=== PATIENT | male | born 1960 | race Caucasian/White ===

== ENCOUNTER 2016-11-23 13:33 | Inpatient (IN) | payer MEDICARE, MEDICAID ==
[2016-11-23] MEDS ORDERED: Albuterol/Ipratropium Neb 3 ML NEB NEB ONE ×3 (13:51→14:56)
[2016-11-23] MEDS ORDERED: METHYLPREDNISOLONE 125 MG/2 ML VIAL IV ONE (13:51)
--- NOTE | 2016-11-23 13:54 | EDPRACDOC ---
- History of Present Illness HPI: HOME O2 IS SUPPOSED TO BE 2L, BUT PT HAS BEEN INCREASING IT IN ORDER TO HELP HIM BREATHE EASIER. <Lisa Nicole - Last Filed: 11/23/16 16:21> - General Information Information Source: Patient, Family, Transmission Mechanic - History of Present Illness HPI: C/o increasing SOB and productive cough (yellow green) and low grade fever up to 99 x 5 days. Denies cp, N/V/D, sore throat, body aches, change in urine or BM. Med hx = DM, COPD, upper left lobectomy, pulmonary fibrosis. Pt on home O2 at 4L 24/7. Current Symptoms: Reports: Cough, Fever, Nasal Symptoms Shortness of Breath: Moderate Cough: Reports: Productive, Green, Yellow Rhinorrhea: Reports: Clear Ear Symptoms: Reports: None Fever Severity/Quality: Reports: low grade Oral Intake: Decreased Urinary Output: Normal Relevant History of: COPD, Other (pulmonary fibrosis, upper left lobectomy) Associated Signs & Symptoms:: Reports: Cough, Fever, Nasal Symptoms <Allen Fitzgerald - Last Filed: 11/23/16 19:35> - General Information Chief Complaint: Dyspnea/Resp distress Stated Complaint: FEVER/SHOB Time Seen by Provider: 11/23/16 13:45 Home Medications: Home Medications Buprenorphine HCl/Naloxone HCl [Suboxone SL Film (8 mg/2 mg)] 1 film SL BID Chlorpheniramine/Phenylephrine [Eql Sinus-Allergy PE Tablet] 1 tab PO DIR Guaifenesin-Dextromethorphan [Mucinex Dm] 1 tab PO BID 11/23/16 Lamotrigine [Lamictal] 100 mg PO TID 11/23/16 Levothyroxine [Synthroid, Levoxyl] 25 mcg PO DAILY 11/23/16 Naproxen 500 mg PO BID 11/23/16 Pregabalin [Lyrica] 100 mg PO TID 11/23/16 Primidone [Mysoline] 250 mg PO TID 11/23/16 Sitagliptin Phos/Metformin HCl [Janumet 50-1,000 mg Tablet] 1 tab PO BID Tamsulosin HCl [Flomax] 0.4 mg PO DAILY 11/23/16 Tizanidine HCl 4 mg PO TID 11/23/16 Trazodone HCl 100 mg PO BID 11/23/16 Allergies/Adverse Reactions: Allergies Allergy/AdvReac Type Severity Reaction Status Date / Time No Known Allergies Allergy Verified 11/23/16 13:34 - Treatment Prior to ED Arrival Reported Medications/Treatment CAN SLIDER Meds/Treatments Given O2 via Cannula EMS Treatment BLS,EKG IV Yes Comment CBG 91 <Lisa Nicole - Last Filed: 11/23/16 16:21> ED Past Medical History - History Reviewed Yes Nurses notes reviewed and agree except as marked - Patient Medical History Psychological History: Reports: Depression - Social Medical History Smoking Status: Heavy tobacco smoker (5 or more cigarettes/day or daily pipe/ cigar) <Allen Fitzgerald - Last Filed: 11/23/16 19:35> EDM Review of Systems - Review of Systems ROS Negative Except as Marked: Yes All systems reviewed and were negative except as marked Nose: Congestion Respiratory: Cough, Shortness of Breath, Sputum Endocrine: Diabetes <Allen Fitzgerald - Last Filed: 11/23/16 19:35> - Physical Exam Last recorded Vital Signs: Last Vital Signs Temp 98.2 F 11/23/16 13:33 Pulse 112 11/23/16 15:49 Resp 22 11/23/16 15:49 BP 131/68 11/23/16 15:49 Pulse Ox 90 L 11/23/16 15:49 Oxygen Pulse Oxygen Saturation 90 O2 Device Nasal Cannula Oxygen Flow Rate 4 Fraction of Inspired Oxygen ( FIO2) <Lisa Nicole - Last Filed: 11/23/16 16:21> - Physical Exam Constitutional: Alert Oriented to: Time, Person, Place Last recorded Vital Signs: Last Vital Signs Temp Pulse 103 11/23/16 13:42 Resp 26 H 11/23/16 13:42 BP 121/69 11/23/16 13:42 Pulse Ox 88 L 11/23/16 13:42 Oxygen Pulse Oxygen Saturation 88 O2 Device Nasal Cannula Oxygen Flow Rate 3 Fraction of Inspired Oxygen ( FIO2) - HEENT Head: Normal Eye Exam: negative: Conjunctival Injection, Scleral Icterus Oropharynx: negative: Drooling Nose: Congestion Neck: Normal - Respiratory/Cardiovascular Respiratory: Rales, Rhonchi Cardiovascular: Normal - GI Tenderness: Non tender - Musculoskeletal Back: Normal Extremities: Normal - Integumentary Skin: Normal - Neurologic Mood Description: Normal Thought: Coherent Perception: Normal <Allen Fitzgerald - Last Filed: 11/23/16 19:35> - Results 11/23/16 14:00 11/23/16 14:00 WBC 16.9 xk/uL (3.8-10.8) H 11/23/16 14:00 RBC 3.83 xM/uL (4.70-6.10) L 11/23/16 14:00 Hgb 12.0 g/dL (14.0-18.0) L 11/23/16 14:00 Hct 37.4 % (42-52) L 11/23/16 14:00 MCV 98 fL (80-94) H 11/23/16 14:00 MCH 31.5 pg (27-32) 11/23/16 14:00 MCHC 32.2 g/dl (33-36) L 11/23/16 14:00 RDW 14.2 % (11.5-14.5) 11/23/16 14:00 Plt Count 210 xk/uL (130-400) 11/23/16 14:00 MPV 8.4 fL (7.4-10.4) 11/23/16 14:00 Neut % (Auto) Cancelled 11/23/16 14:00 Lymph % (Auto) Cancelled 11/23/16 14:00 [place] % (Auto) Cancelled 11/23/16 14:00 Eos % (Auto) Cancelled 11/23/16 14:00 Baso % (Auto) Cancelled 11/23/16 14:00 Absolute Neuts (auto) Cancelled 11/23/16 14:00 Absolute Lymphs (auto) Cancelled 11/23/16 14:00 Seg Neuts % (Manual) 82 % (45-76) H 11/23/16 14:00 Band Neutrophils % 6 % (0-5) H 11/23/16 14:00 Lymphocytes % (Manual) 10 % (17-44) L 11/23/16 14:00 Monocytes % (Manual) 2 % (0-10) 11/23/16 14:00 Absolute Neutrophils 14.87 xk/uL (1.7-8.2) H 11/23/16 14:00 Absolute Lymphocytes 1.69 xk/uL (0.65-4.75) 11/23/16 14:00 Atypical Lymphocytes Occ 11/23/16 14:00 Toxic Granulation 1+ 11/23/16 14:00 Platelet Estimate Norm (NORMAL) 11/23/16 14:00 RBC Morphology 1+ poik Norm 11/23/16 14:00 RBC Morphology 1+ poik Norm 11/23/16 14:00 Puncture Site Right radial 11/23/16 14:09 pH 7.270 pH UNITS (7.35-7.45) L 11/23/16 14:09 pCO2 39.0 mmHg (35-45) 11/23/16 14:09 pO2 88.0 mmHg (80-100) 11/23/16 14:09 HCO3 17.9 MMOL/L (22-26) L 11/23/16 14:09 Total CO2 19.1 MMOL/L (23-27) L 11/23/16 14:09 Base Excess -8.4 (+/- 2) L 11/23/16 14:09 FiO2 % 6 lpm nc 11/23/16 14:09 Specimen Drawn By Roude 11/23/16 14:09 Sodium 138 mEq/L (137-146) 11/23/16 14:00 Potassium 4.8 mEq/L (3.5-5.1) 11/23/16 14:00 Chloride 100 mEq/L (98-107) 11/23/16 14:00 Carbon Dioxide 19 mMOL/L (22-33) L 11/23/16 14:00 Anion Gap 24 mEq/L (8-16) H 11/23/16 14:00 BUN 13 MG/DL (9-20) 11/23/16 14:00 Creatinine 0.60 MG/DL (0.66-1.25) L 11/23/16 14:00 Estimated GFR (MDRD) > 60 mL/min (>=60) 11/23/16 14:00 Glucose 100 MG/DL (70-99) H 11/23/16 14:00 Calculated Osmolality 266 MOs/Kg (270-290) L 11/23/16 14:00 Lactic Acid 0.7 mEq/L (0.7-2.1) 11/23/16 14:00 Calcium 10.1 MG/DL (8.4-10.2) 11/23/16 14:00 Total Bilirubin 0.7 MG/DL (0.2-1.3) 11/23/16 14:00 AST 30 IU/L (17-59) 11/23/16 14:00 ALT 18 IU/L (21-72) L 11/23/16 14:00 Alkaline Phosphatase 95 IU/L (38-126) 11/23/16 14:00 Rxf-R-Dnfxlhiolqy Pept 307 pg/mL (0-900) 11/23/16 14:00 Total Protein 8.9 G/DL (6.3-8.2) H 11/23/16 14:00 Albumin 4.2 G/DL (3.5-5.0) 11/23/16 14:00 Urine Color Yellow 11/23/16 14:50 Urine Clarity Clear 11/23/16 14:50 Urine pH 6.0 (5.0-8.0) 11/23/16 14:50 Ur Specific [place] 1.015 (1.003-1.035) 11/23/16 14:50 Urine Protein Neg (NEG/TRACE) 11/23/16 14:50 Urine Glucose (UA) Neg (NEGATIVE) 11/23/16 14:50 Urine Ketones 2+ (NEGATIVE) H 11/23/16 14:50 Urine Occult Blood Neg (NEG/TRACE) 11/23/16 14:50 Urine Nitrite Neg (NEGATIVE) 11/23/16 14:50 Urine Bilirubin Neg (NEGATIVE) 11/23/16 14:50 Urine Urobilinogen 0.2 MG/DL (0-1) 11/23/16 14:50 Ur Leukocyte Esterase Neg (NEGATIVE) 11/23/16 14:50 Urine RBC 0-2 (0-2) 11/23/16 14:50 Urine WBC 0-2 (0-2) 11/23/16 14:50 Urine Bacteria Few (NEG/FEW) 11/23/16 14:50 Urine Mucus Occ (NEG/OCC) 11/23/16 14:50 Lab Results 11/23/16 11/23/16 11/23/16 14:50 14:09 14:00 WBC RBC Hgb Hct MCV MCH MCHC RDW Plt Count MPV Neut % (Auto) Lymph % (Auto) [place] % (Auto) Eos % (Auto) Baso % (Auto) Absolute Neuts (auto) Absolute Lymphs (auto) Seg Neuts % (Manual) Band Neutrophils % Lymphocytes % (Manual) Monocytes % (Manual) Absolute Neutrophils Absolute Lymphocytes Atypical Lymphocytes Toxic Granulation Platelet Estimate RBC Morphology Puncture Site Right radial pH 7.270 L pCO2 39.0 pO2 88.0 HCO3 17.9 L Total CO2 19.1 L Base Excess -8.4 L FiO2 % 6 lpm nc Specimen Drawn By Roude Sodium Potassium Chloride Carbon Dioxide Anion Gap BUN Creatinine Estimated GFR (MDRD) Glucose Calculated Osmolality Lactic Acid Calcium Total Bilirubin AST ALT Alkaline Phosphatase Cvb-Y-Luouubnhibm Pept 307 Total Protein Albumin Urine Color Yellow Urine Clarity Clear Urine pH 6.0 Ur Specific [place] 1.015 Urine Protein Neg Urine Glucose (UA) Neg Urine Ketones 2+ H Urine Occult Blood Neg Urine Nitrite Neg Urine Bilirubin Neg Urine Urobilinogen 0.2 Ur Leukocyte Esterase Neg Urine RBC 0-2 Urine WBC 0-2 Urine Bacteria Few Urine Mucus Occ 11/23/16 11/23/16 11/23/16 14:00 14:00 14:00 WBC 16.9 H RBC 3.83 L Hgb 12.0 L Hct 37.4 L MCV 98 H MCH 31.5 MCHC 32.2 L RDW 14.2 Plt Count 210 MPV 8.4 Neut % (Auto) Cancelled Lymph % (Auto) Cancelled [place] % (Auto) Cancelled Eos % (Auto) Cancelled Baso % (Auto) Cancelled Absolute Neuts (auto) Cancelled Absolute Lymphs (auto) Cancelled Seg Neuts % (Manual) 82 H Band Neutrophils % 6 H Lymphocytes % (Manual) 10 L Monocytes % (Manual) 2 Absolute Neutrophils 14.87 H Absolute Lymphocytes 1.69 Atypical Lymphocytes Occ Toxic Granulation 1+ Platelet Estimate Norm RBC Morphology Norm Puncture Site pH pCO2 pO2 HCO3 Total CO2 Base Excess FiO2 % Specimen Drawn By Sodium 138 Potassium 4.8 Chloride 100 Carbon Dioxide 19 L Anion Gap 24 H BUN 13 Creatinine 0.60 L Estimated GFR (MDRD) > 60 Glucose 100 H Calculated Osmolality 266 L Lactic Acid 0.7 Calcium 10.1 Total Bilirubin 0.7 AST 30 ALT 18 L Alkaline Phosphatase 95 Qop-X-Ujsznkuxmnb Pept Total Protein 8.9 H Albumin 4.2 Urine Color Urine Clarity Urine pH Ur Specific [place] Urine Protein Urine Glucose (UA) Urine Ketones Urine Occult Blood Urine Nitrite Urine Bilirubin Urine Urobilinogen Ur Leukocyte Esterase Urine RBC Urine WBC Urine Bacteria Urine Mucus - Additional Information PT AMBULATED AND O2 SATS DROPPED. PT BECAME MORE TACHYCARDIC AND LOOKED WORSE. PT PLACED ON BIPAP WHICH HELPED HIM FEEL BETTER. <Lisa Nicole - Last Filed: 11/23/16 16:21> - Results 11/23/16 14:00 11/23/16 14:00 - EKG EKG #1 EKG Time: 13:46 -: Yes EKG interpreted by me Rate: bpm: 101 Rhythm: ST ST: Nonsp - Diagnostic Imaging Chest Image interpreted by: Radiologist EXAM: PORTABLE CHEST 1 VIEW COMPARISON: None. FINDINGS: There is widespread interstitial and patchy alveolar edema bilaterally. There is cardiomegaly with pulmonary venous hypertension. No adenopathy apparent. No bone lesions. IMPRESSION: Evidence of congestive heart failure. Electronically Signed By: Ankit Douglas III, M.D. On: 11/23/2016 14:55 <Allen Fitzgerald - Last Filed: 11/23/16 19:35> - Departure Yes I personally saw and evaluated the patient. Decision to Admit Time: 16:25 Decision to admit date: 11/23/16 Decision to admit: from ED - Physician Consulted Hospitalist Provider Called: Renata Laurent <Lisa Nicole - Last Filed: 11/23/16 16:21> - Departure Disposition: Admit IP To This Hospital Education/Counseling Given To: Patient, Family Member Education/Counseling Given Regarding: Diagnosis, Treatment, Prognosis, Follow Up <Allen Fitzgerald - Last Filed: 11/23/16 19:35> - Departure Condition: Stable Final Diagnosis: Pulmonary fibrosis Congestive heart failure Qualifiers: Congestive heart failure type: unspecified congestive heart failure type Congestive heart failure chronicity: unspecified congestive heart failure chronicity Qualified Code(s): I50.9 - Heart failure, unspecified Respiratory failure Qualifiers: Chronicity: unspecified Respiratory failure complication: unspecified whether with hypoxia or hypercapnia Qualified Code(s): J96.90 - Respiratory failure, unspecified, unspecified whether with hypoxia or hypercapnia
[2016-11-23 14:13] LABS: MPV 8.4 fL (7.4-10.4)
[2016-11-23 14:14] LABS: ABG Draw Site Right Radial; ALLEN'S TEST PASS; BEb -8.4 (+/- 2); TCO2 19.1 MMOL/L (23-27)
[2016-11-23 14:23] LABS: BLOOD UREA NITROGEN 13 MG/DL (9-20); CALCIUM 10.1 MG/DL (8.4-10.2); CALCULATED OSMOLALITY 266 MOs/Kg (270-290); CHLORIDE 100 mEq/L (98-107); GLUCOSE 100 MG/DL (70-99); SODIUM LEVEL 138 mEq/L (137-146); TOTAL PROTEIN 8.9 G/DL (6.3-8.2)
[2016-11-23 14:56] LABS: SEG NEUTROPHIL 82 % (45-76)
--- NOTE | 2016-11-23 14:58 | DIRPT ---
CLINICAL DATA: Shortness of breath and chest pain EXAM: PORTABLE CHEST 1 VIEW COMPARISON: None. FINDINGS: There is widespread interstitial and patchy alveolar edema bilaterally. There is cardiomegaly with pulmonary venous hypertension. No adenopathy apparent. No bone lesions. IMPRESSION: Evidence of congestive heart failure. Electronically Signed By: Ankit Douglas III, M.D. On: 11/23/2016 14:55
[2016-11-23 15:10] LABS: RBC/URINE 0-2 (0-2); WBC/URINE 0-2 (0-2)
[2016-11-23 15:11] LABS: LEUKOCYTES/URINE NEG (NEGATIVE); NITRITE/URINE NEG (NEGATIVE); URINE OCCULT BLOOD NEG (NEG/TRACE)
[2016-11-23] MEDS ORDERED: FUROSEMIDE 20 MG TAB PO ONE (15:40)
[2016-11-23] MEDS ORDERED: ACETAMINOPHEN 325 MG/TAB TABLET PO ONE (15:58)
[2016-11-23] MEDS ORDERED: FUROSEMIDE 40 MG/4 ML VIAL IV ONE (16:00)
[2016-11-23 16:18] LABS: ALLEN'S TEST PASS; BEb -11.4 (+/- 2); TCO2 16.8 MMOL/L (23-27)
[2016-11-23 16:19] LABS: ABG Draw Site Right Radial
[2016-11-23] MEDS ORDERED: LORAZEPAM 2 MG/ML VIAL IV ONE (16:28)
[2016-11-23] MEDS ORDERED: NITROGLYCERINE 2 % OINTMENT PACK TOP ONE (16:28)
[2016-11-23] MEDS ORDERED: Docusate Sodium 100 MG CAP PO PRN (18:05)
[2016-11-23] MEDS ORDERED: BENZONATATE 100 MG PERLES PO PRN (18:05)
[2016-11-23] MEDS ORDERED: DEXTROSE 25 GM/50 ML PFS IV PRN (18:05)
[2016-11-23] MEDS ORDERED: Albuterol/Ipratropium Neb 3 ML NEB NEB PRN (18:05)
[2016-11-23] MEDS ORDERED: GLUCAGON 1 MG VIAL SQ PRN (18:05)
[2016-11-23] MEDS ORDERED: GUAIFENESIN 200 MG/10 ML UDC PO PRN (18:05)
[2016-11-23] MEDS ORDERED: ACETAMINOPHEN 325 MG/TAB TABLET PO PRN (18:05)
[2016-11-23] MEDS ORDERED: GLUCOSE (ORAL GEL) 15 GM TUBE PO PRN (18:05)
[2016-11-23] MEDS ORDERED: ONDANSETRON HCL 4 MG/2 ML VIAL IV PRN (18:05)
[2016-11-23] MEDS ORDERED: MAGNESIUM HYDROXIDE 30 ML BOTTLE PO PRN (18:05)
--- NOTE | 2016-11-23 18:14 | HISTPHYS ---
- Chief Complaint Shortness of breath - History of Present Illness Mr. rosa it is a 56-year-old white male with history of end-stage COPD and pulmonary fibrosis on chronic oxygen at home who presents to the emergency room with 5 days of increasing shortness of breath, congestion and general weakness. He has been using his breathing treatments regularly and has been increasing his oxygen at home. Despite this he has had very little relief. Family states that he could barely walk more than 10 feet without giving out. This prompted them to encourage him to come to the emergency room. In the ER he was severely short of breath. He was given nebulizer treatments, Lasix, IV steroids. He apparently tried to get out of bed and walk and nearly collapsed, becoming severely short of breath. He has had to be placed on BiPAP. He is moderately acidotic and hypoxic. He has severe diffuse rales and rhonchi on exam. He will be admitted to the intensive care unit for further evaluation and management. - Medical History Cardiac History: Reports: Hypertension Respiratory History: Reports: COPD, Bronchitis, Cough, Chronic Bronchitis GI/ History: Reports: No Significant History Musculoskeletal History: Reports: No Significant History Systemic History: Reports: No Significant History Neurological History: Reports: No Significant History Psychological History: Reports: Depression - Medictions/Allergies Allergies No Known Allergies Allergy (Verified 11/23/16 13:34) Current Medication List: Reviewed Home Medications Buprenorphine HCl/Naloxone HCl [Suboxone SL Film (8 mg/2 mg)] 1 film SL BID Chlorpheniramine/Phenylephrine [Eql Sinus-Allergy PE Tablet] 1 tab PO DIR Guaifenesin-Dextromethorphan [Mucinex Dm] 1 tab PO BID 11/23/16 Lamotrigine [Lamictal] 100 mg PO TID 11/23/16 Levothyroxine [Synthroid, Levoxyl] 25 mcg PO DAILY 11/23/16 Naproxen 500 mg PO BID 11/23/16 Pregabalin [Lyrica] 100 mg PO TID 11/23/16 Primidone [Mysoline] 250 mg PO TID 11/23/16 Sitagliptin Phos/Metformin HCl [Janumet 50-1,000 mg Tablet] 1 tab PO BID Tamsulosin HCl [Flomax] 0.4 mg PO DAILY 11/23/16 Tizanidine HCl 4 mg PO TID 11/23/16 Trazodone HCl 100 mg PO BID 11/23/16 - Family History Reports: Hypertension, Cardiac Disorders - Social History Lives: Alone Smoking Status: Heavy tobacco smoker (5 or more cigarettes/day or daily pipe/ cigar) Social History: Reports: Alcohol Use - Review of Systems Yes Review of systems cannot be obtained due to the patient's medical condition (Due to severe respiratory distress and BiPAP use) - Physical Exam Constitutional: Alert, Distress. negative: Well appearing (Acutely ill- appearing) Oriented to: Time, Person, Place Exam: Last Vital Signs Temp 98.2 F 11/23/16 13:33 Pulse 106 11/23/16 17:09 Resp 20 11/23/16 17:09 BP 115/80 11/23/16 17:09 Pulse Ox 94 11/23/16 17:09 Intake & Output 11/23/16 11/23/16 11/23/16 07:59 15:59 23:59 Patient's weight 98.883 kg - HEENT Head: Normal Eye: Normal. negative: Conjunctival Injection, Scleral Icterus Oropharynx: Normal. negative: Drooling Nose: Congestion - Respiratory/Cardiovascular Respiratory: Rales, Rhonchi, Tachypnea, Wheezes Cardiovascular: Tachycardia - GI Auscultation: Normal Palpation: Normal Tenderness: Non tender - Musculoskeletal Back: Normal Extremities: Normal - Integumentary Skin: Normal, Warm, Dry Lymphatics: Normal. negative: Adenopathy - Neurologic Memory Impaired: Normal (Appears normal. Difficult to interact due to respiratory distress and BiPAP use) Motor Function: Normal Cranial Nerve: Normal Cerebellar: Normal Mood Description: Normal Thought: Coherent Perception: Normal - Focused CV Perfusion Exam Vital Signs: Last Vital Signs Temp 98.2 F 11/23/16 13:33 Pulse 106 11/23/16 17:09 Resp 20 11/23/16 17:09 BP 115/80 11/23/16 17:09 Pulse Ox 94 11/23/16 17:09 - Lab Results Laboratory Results - last 24 hr 11/23/16 11/23/16 11/23/16 14:00 14:00 14:00 WBC 16.9 H RBC 3.83 L Hgb 12.0 L Hct 37.4 L MCV 98 H MCH 31.5 MCHC 32.2 L RDW 14.2 Plt Count 210 MPV 8.4 Neut % (Auto) Cancelled Lymph % (Auto) Cancelled [place] % (Auto) Cancelled Eos % (Auto) Cancelled Baso % (Auto) Cancelled Absolute Neuts (auto) Cancelled Absolute Lymphs (auto) Cancelled Seg Neuts % (Manual) 82 H Band Neutrophils % 6 H Lymphocytes % (Manual) 10 L Monocytes % (Manual) 2 Absolute Neutrophils 14.87 H Absolute Lymphocytes 1.69 Atypical Lymphocytes Occ Toxic Granulation 1+ Platelet Estimate Norm RBC Morphology Norm Puncture Site pH pCO2 pO2 HCO3 Total CO2 Base Excess FiO2 % Specimen Drawn By Sodium 138 Potassium 4.8 Chloride 100 Carbon Dioxide 19 L Anion Gap 24 H BUN 13 Creatinine 0.60 L Estimated GFR (MDRD) > 60 Glucose 100 H Calculated Osmolality 266 L Lactic Acid 0.7 Calcium 10.1 Total Bilirubin 0.7 AST 30 ALT 18 L Alkaline Phosphatase 95 Cut-G-Leensudkrpx Pept Total Protein 8.9 H Albumin 4.2 Urine Color Urine Clarity Urine pH Ur Specific [place] Urine Protein Urine Glucose (UA) Urine Ketones Urine Occult Blood Urine Nitrite Urine Bilirubin Urine Urobilinogen Ur Leukocyte Esterase Urine RBC Urine WBC Urine Bacteria Urine Mucus 11/23/16 11/23/16 11/23/16 14:00 14:09 14:50 WBC RBC Hgb Hct MCV MCH MCHC RDW Plt Count MPV Neut % (Auto) Lymph % (Auto) [place] % (Auto) Eos % (Auto) Baso % (Auto) Absolute Neuts (auto) Absolute Lymphs (auto) Seg Neuts % (Manual) Band Neutrophils % Lymphocytes % (Manual) Monocytes % (Manual) Absolute Neutrophils Absolute Lymphocytes Atypical Lymphocytes Toxic Granulation Platelet Estimate RBC Morphology Puncture Site Right radial pH 7.270 L pCO2 39.0 pO2 88.0 HCO3 17.9 L Total CO2 19.1 L Base Excess -8.4 L FiO2 % 6 lpm nc Specimen Drawn By Roude Sodium Potassium Chloride Carbon Dioxide Anion Gap BUN Creatinine Estimated GFR (MDRD) Glucose Calculated Osmolality Lactic Acid Calcium Total Bilirubin AST ALT Alkaline Phosphatase Gsv-X-Hpdqxnckvgw Pept 307 Total Protein Albumin Urine Color Yellow Urine Clarity Clear Urine pH 6.0 Ur Specific [place] 1.015 Urine Protein Neg Urine Glucose (UA) Neg Urine Ketones 2+ H Urine Occult Blood Neg Urine Nitrite Neg Urine Bilirubin Neg Urine Urobilinogen 0.2 Ur Leukocyte Esterase Neg Urine RBC 0-2 Urine WBC 0-2 Urine Bacteria Few Urine Mucus Occ 11/23/16 16:14 WBC RBC Hgb Hct MCV MCH MCHC RDW Plt Count MPV Neut % (Auto) Lymph % (Auto) [place] % (Auto) Eos % (Auto) Baso % (Auto) Absolute Neuts (auto) Absolute Lymphs (auto) Seg Neuts % (Manual) Band Neutrophils % Lymphocytes % (Manual) Monocytes % (Manual) Absolute Neutrophils Absolute Lymphocytes Atypical Lymphocytes Toxic Granulation Platelet Estimate RBC Morphology Puncture Site Right radial pH 7.220 L* pCO2 38.0 pO2 102.0 H HCO3 15.6 L Total CO2 16.8 L Base Excess -11.4 L FiO2 % 4lpm nc Specimen Drawn By Piksa Sodium Potassium Chloride Carbon Dioxide Anion Gap BUN Creatinine Estimated GFR (MDRD) Glucose Calculated Osmolality Lactic Acid Calcium Total Bilirubin AST ALT Alkaline Phosphatase Wbg-P-Pnyjohpxpbp Pept Total Protein Albumin Urine Color Urine Clarity Urine pH Ur Specific [place] Urine Protein Urine Glucose (UA) Urine Ketones Urine Occult Blood Urine Nitrite Urine Bilirubin Urine Urobilinogen Ur Leukocyte Esterase Urine RBC Urine WBC Urine Bacteria Urine Mucus - Assessment (1) Acute respiratory failure J96.00 - ACUTE RESPIRATORY FAILURE, UNSP W HYPOXIA OR HYPERCAPNIA Acute Present on Admission: Yes Qualifiers: Respiratory failure complication: hypoxia Qualified Code(s): J96.01 - Acute respiratory failure with hypoxia Significant distress and terrible lung exam. Currently on BiPAP. Admit to the ICU. IV steroids, IV antibiotics, nebulizer treatments and BiPAP support. The congestion and x-ray appear like heart failure however his BNP is completely normal at 307. (2) Acute bronchopneumonia J18.0 - BRONCHOPNEUMONIA, UNSPECIFIED ORGANISM Acute Present on Admission: Yes IV antibiotics and pulmonary toilet. (3) Diabetes mellitus E11.9 - TYPE 2 DIABETES MELLITUS WITHOUT COMPLICATIONS Acute Present on Admission: Yes Qualifiers: Diabetes mellitus type: type 2 Diabetes mellitus complication status: without complication Diabetes mellitus complication detail: D Diabetic retinopathy severity: D Proliferative retinopathy type: P Diabetes mellitus macular edema: D Diabetes mellitus terminal manager insulin use: without [place] [facility] use Laterality: L Chronic kidney disease stage: C Qualified Code(s): E11.9 - Type 2 diabetes mellitus without complications Accu-Cheks and sliding scale insulin (4) Resting tremor R25.9 - UNSPECIFIED ABNORMAL INVOLUNTARY MOVEMENTS Acute Present on Admission: Yes Continue current medications (5) Congestive heart failure I50.9 - HEART FAILURE, UNSPECIFIED Suspected Present on Admission: Clinically Unable to Determine Qualifiers: Congestive heart failure type: unspecified congestive heart failure type Congestive heart failure chronicity: acute Qualified Code(s): I50.9 - Heart failure, unspecified Clinically he appears congested like heart failure however his BNP is normal at 307 which effectively rules out CHF. Will check 2D echo (6) Pulmonary fibrosis J84.10 - PULMONARY FIBROSIS, UNSPECIFIED Acute Present on Admission: Yes Continue IV steroids nebulizer treatments. Encourage smoking cessation Case Care Discussed with: Patient, Family (Discuss with family at length) Total Time: 1 hour 30 minutes Critical Care: Yes
[2016-11-23 18:31] LABS: FREE T3 3.31 pg/mL (2.77-5.27); FREE T4 1.62 ng/dL (0.78-2.19)
[2016-11-23 18:45] LABS: hTSH 1.33 uIU/mL (0.5-4.67)
[2016-11-23] MEDS: Albuterol/Ipratropium Neb 3 ML NEB NEB SCH (19:55)
[2016-11-23] MEDS ORDERED: LORAZEPAM 2 MG/ML VIAL ONE (20:01)
[2016-11-23] MEDS ORDERED: NS 500 ML IV ONE (20:04)
[2016-11-23] MEDS: NS/KCl 20 mEq 1,000 ML IV SCH (20:14)
[2016-11-23] MEDS: CEFTRIAXONE 1 GM in D5W 100 ML IV SCH (20:19)
[2016-11-23] MEDS: ENOXAPARIN 40 MG/0.4 ML PFS SQ SCH (20:20)
[2016-11-23] MEDS: NICOTINE 21 MG PATCH TOP SCH (20:20)
[2016-11-23] MEDS: METHYLPREDNISOLONE 125 MG/2 ML VIAL IV SCH (20:21)
[2016-11-23] MEDS ORDERED: NALOXONE 2 MG SL ONE (21:00)
[2016-11-23] MEDS ORDERED: BUPRENORPHINE SL ONE (21:00)
[2016-11-23] MEDS ORDERED: Non-Formulary Medication ITEM (Tizanidine Hcl [Tizanidine Hcl] 4 MG) PO SCH (21:00)
[2016-11-23] MEDS: AZITHROMYCIN 500 MG in D5W 250 ML IV SCH (21:36)
[2016-11-23] MEDS: CHLORHEXIDINE (HIBICLENS) 4 OZ BOTTLE TOP SCH (21:49)
[2016-11-23] MEDS: PREGABALIN 100 MG CAP PO SCH (21:50)
[2016-11-23] MEDS: LAMOTRIGINE 100 MG TAB PO SCH (21:50)
[2016-11-23] MEDS: PRIMIDONE 250 MG TAB PO SCH (21:50)
[2016-11-23] MEDS: TIZANIDINE 2 MG TAB PO SCH (21:50)
[2016-11-23] MEDS: TRAZODONE 100 MG TAB PO SCH (21:50)
[2016-11-23] MEDS: REGULAR INSULIN 100 UNITS/ML - 3 ML VIAL SQ SCH (21:51)
[2016-11-23] MEDS: BUPRENORPHINE SL SCH (22:09)
[2016-11-23] MEDS: NALOXONE 2 MG SL SCH (22:09)
[2016-11-24] MEDS: Albuterol/Ipratropium Neb 3 ML NEB NEB SCH ×4 (01:25→21:25)
[2016-11-24] MEDS: METHYLPREDNISOLONE 125 MG/2 ML VIAL IV SCH ×4 (02:09→20:10)
[2016-11-24 05:04] LABS: ALLEN'S TEST PASS; BEb -8.3 (+/- 2); TCO2 20.3 MMOL/L (23-27)
[2016-11-24] MEDS: PRIMIDONE 250 MG TAB PO SCH ×3 (05:20→20:13)
[2016-11-24] MEDS: TIZANIDINE 2 MG TAB PO SCH ×3 (05:20→20:13)
[2016-11-24] MEDS: LAMOTRIGINE 100 MG TAB PO SCH ×3 (05:20→20:12)
[2016-11-24] MEDS: PREGABALIN 100 MG CAP PO SCH ×3 (05:20→20:13)
[2016-11-24 05:40] LABS: ABG Draw Site Right Radial
[2016-11-24] MEDS: REGULAR INSULIN 100 UNITS/ML - 3 ML VIAL SQ SCH ×4 (06:02→20:19)
[2016-11-24] MEDS: NS/KCl 20 mEq 1,000 ML IV SCH (06:32)
[2016-11-24 07:06] LABS: BLOOD UREA NITROGEN 16 MG/DL (9-20); CALCIUM 9.2 MG/DL (8.4-10.2); CALCULATED OSMOLALITY 272 MOs/Kg (270-290); CHLORIDE 100 mEq/L (98-107); GLUCOSE 145 MG/DL (70-99); SODIUM LEVEL 139 mEq/L (137-146)
[2016-11-24 07:14] LABS: MPV 8.6 fL (7.4-10.4)
[2016-11-24 07:36] LABS: SEG NEUTROPHIL 67 % (45-76); TOTAL CELL COUNT 100
--- NOTE | 2016-11-24 07:49 | GENMEDPROG ---
Chief Complaint: Feels about the same. More fatigued. Still acidotic but oxygenation better. Still severely congested Notes Reviewed: Yes Events from last night noted and discussed with Clinical Staff Current Medication List: Reviewed Currently: Reports: Cough, Wheezing, CHAVEZ, SOB. Denies: Sputum, Nausea and Vomiting, Abdominal Pain, Chest Pain DVT Prophylaxis: Yes - Physical Examination Vital Signs and I&O: Last Vital Signs Temp 98.7 F 11/24/16 07:00 Pulse 87 11/24/16 07:00 Resp 22 11/24/16 07:00 BP 123/71 11/24/16 07:00 Pulse Ox 100 11/24/16 07:00 Oxygen Pulse Oxygen Saturation 100 O2 Device BiPAP Oxygen Flow Rate Fraction of Inspired Oxygen ( 35 FIO2) Intake & Output 11/21/16 11/22/16 11/23/16 11/24/16 23:59 23:59 23:59 23:59 Intake Total 387 1148 Output Total 975 550 Balance -588 598 Patient's weight 91.716 kg General: Alert, Oriented x3, Cooperative, Moderate distress. negative: Well appearing (Acutely ill-appearing) HEENT: Normal, PERRLA, EOMI, Anicteric Sclera Neck: Non-tender, Full range of motion, Normal Trachea alignment, Normal inspection. negative: JVD Lymphatics: Normal. negative: Adenopathy, Inguinal Erythema Respiratory: Rales, Rhonchi, Tachypnea, Wheezes Cardiovascular: Regular rate and rhythm, No Gallops,Rubs/Murmurs GI: Normal bowel sounds, Soft, No hepatospenomegaly Extremities/Musculoskeletal: Normal pulses. negative: Tenderness, Swelling, Edema Skin: Warm,Dry and Intact, No rashes, No breakdown, No significant lesion Neurological: Normal speech, Strength at 5/5 X4 ext, Normal tone Psych/Mental Status: Appropriate, Normal Affect, Cooperative Lab/DI/Studies Reviewed: Laboratory Results - last 24 hr 11/23/16 11/23/16 11/23/16 17:47 17:47 21:48 WBC RBC Hgb Hct MCV MCH MCHC RDW Plt Count MPV Neut % (Auto) Lymph % (Auto) [place] % (Auto) Eos % (Auto) Baso % (Auto) Absolute Neuts (auto) Absolute Lymphs (auto) Seg Neuts % (Manual) Band Neutrophils % Lymphocytes % (Manual) Monocytes % (Manual) Myelocytes % Absolute Neutrophils Absolute Lymphocytes Platelet Estimate RBC Morphology Puncture Site pH pCO2 pO2 HCO3 Total CO2 Base Excess FiO2 % Tidal Volume Mode BiPAP Specimen Drawn By Sodium Potassium Chloride Carbon Dioxide Anion Gap BUN Creatinine Estimated GFR (MDRD) Glucose POC Capillary Glucose 182 H Calculated Osmolality Calcium Troponin I < 0.01 TSH 1.33 Free T4 1.62 Free T3 3.31 11/24/16 11/24/16 11/24/16 04:55 06:01 06:05 WBC RBC Hgb Hct MCV MCH MCHC RDW Plt Count MPV Neut % (Auto) Lymph % (Auto) [place] % (Auto) Eos % (Auto) Baso % (Auto) Absolute Neuts (auto) Absolute Lymphs (auto) Seg Neuts % (Manual) Band Neutrophils % Lymphocytes % (Manual) Monocytes % (Manual) Myelocytes % Absolute Neutrophils Absolute Lymphocytes Platelet Estimate RBC Morphology Puncture Site Right radial pH 7.240 L* pCO2 44.0 pO2 118.0 H HCO3 18.9 L Total CO2 20.3 L Base Excess -8.3 L FiO2 % 35 Tidal Volume Mode BiPAP 08/10 Specimen Drawn By [facility] Sodium 139 Potassium 5.8 H Chloride 100 Carbon Dioxide 20 L Anion Gap 25 H BUN 16 Creatinine 0.60 L Estimated GFR (MDRD) > 60 Glucose 145 H POC Capillary Glucose 144 H Calculated Osmolality 272 Calcium 9.2 Troponin I TSH Free T4 Free T3 11/24/16 11/24/16 11/24/16 06:05 11:17 17:01 WBC 11.8 H RBC 3.81 L Hgb 12.0 L Hct 37.1 L MCV 97 H MCH 31.6 MCHC 32.4 L RDW 14.2 Plt Count 209 MPV 8.6 Neut % (Auto) Cancelled Lymph % (Auto) Cancelled [place] % (Auto) Cancelled Eos % (Auto) Cancelled Baso % (Auto) Cancelled Absolute Neuts (auto) Cancelled Absolute Lymphs (auto) Cancelled Seg Neuts % (Manual) 67 Band Neutrophils % 18 H Lymphocytes % (Manual) 6 L Monocytes % (Manual) 7 Myelocytes % 2 H Absolute Neutrophils 10.03 H Absolute Lymphocytes 0.71 Platelet Estimate Norm RBC Morphology Norm Puncture Site pH pCO2 pO2 HCO3 Total CO2 Base Excess FiO2 % Tidal Volume Mode BiPAP Specimen Drawn By Sodium Potassium Chloride Carbon Dioxide Anion Gap BUN Creatinine Estimated GFR (MDRD) Glucose POC Capillary Glucose 117 H 177 H Calculated Osmolality Calcium Troponin I TSH Free T4 Free T3 - Assessment (1) Acute respiratory failure Acute J96.00 - ACUTE RESPIRATORY FAILURE, UNSP W HYPOXIA OR HYPERCAPNIA Qualifiers: Respiratory failure complication: hypoxia Qualified Code(s): J96.01 - Acute respiratory failure with hypoxia Comment/Plan: More comfortable today. Still significant wheezes, rales and rhonchi on exam. Very congested. Less hypoxic but remains moderately acidotic. Continue BiPAP use. IV steroids, IV antibiotics and nebulizer treatments. 2D echo has been ordered. Have asked Dr. Luong with Pulmonary Critical Care to see in consultation. Continue ICU care (2) Acute bronchopneumonia Acute J18.0 - BRONCHOPNEUMONIA, UNSPECIFIED ORGANISM Comment/Plan: IV antibiotics and pulmonary toilet. (3) Diabetes mellitus Acute E11.9 - TYPE 2 DIABETES MELLITUS WITHOUT COMPLICATIONS Qualifiers: Diabetes mellitus type: type 2 Diabetes mellitus complication status: without complication Diabetes mellitus complication detail: D Diabetic retinopathy severity: D Proliferative retinopathy type: P Diabetes mellitus macular edema: D Diabetes mellitus alf insulin use: without alf use Laterality: L Chronic kidney disease stage: C Qualified Code(s): E11.9 - Type 2 diabetes mellitus without complications Comment/Plan: Accu-Cheks and sliding scale insulin (4) Resting tremor Acute R25.9 - UNSPECIFIED ABNORMAL INVOLUNTARY MOVEMENTS Comment/Plan: Continue current medications (5) Congestive heart failure Suspected I50.9 - HEART FAILURE, UNSPECIFIED Qualifiers: Congestive heart failure type: unspecified congestive heart failure type Congestive heart failure chronicity: acute Qualified Code(s): I50.9 - Heart failure, unspecified Comment/Plan: Clinically he appears congested like heart failure however his BNP is normal at 307 which effectively rules out CHF. Will check 2D echo (6) Pulmonary fibrosis Acute J84.10 - PULMONARY FIBROSIS, UNSPECIFIED Comment/Plan: Continue IV steroids nebulizer treatments. Encourage smoking cessation Case Care Discussed with: Patient, Consultants, Family, Nursing Staff, Physical Therapy, Resource Management, Respiratory Therapy, Encyclopedia Research Worker Total Time: 45 minutes Critical Care: Yes
[2016-11-24] MEDS ORDERED: FLU VACCINE (Afluria) 0.5 ML DOSE IM ONE (08:00)
[2016-11-24] MEDS ORDERED: PNEUMOCOCCAL 0.5 ML VIAL IM ONE (08:00)
[2016-11-24] MEDS: NS 1,000 ML IV SCH (10:07)
[2016-11-24] MEDS: LEVOTHYROXINE 25 MCG (0.025 MG) TAB PO SCH (10:09)
[2016-11-24] MEDS: TRAZODONE 100 MG TAB PO SCH ×2 (10:09→20:11)
[2016-11-24] MEDS: TAMSULOSIN HCL 0.4 MG CAP PO SCH (10:09)
[2016-11-24] MEDS: NALOXONE 2 MG SL SCH ×2 (10:25→20:13)
[2016-11-24] MEDS: BUPRENORPHINE SL SCH ×2 (10:25→20:13)
--- NOTE | 2016-11-24 15:41 | CAPUECHO ---
INDICATION: CHF HEIGHT: 182.9 cm (6 ft 0.0 in) WEIGHT: 91.6 kg (202.0 lbs) BP: 114/63 BSA: 2.331989 m MEASUREMENTS 2D RVIDd: 4.5 cm LA Diam: 4.2 cm LAESV MOD A4C: 64.8 ml LAESV MOD A2C: 74.8 ml LAESV Index (A-L): 37.16 ml/m M-MODE IVSd: 1.0 cm LVIDd: 4.9 cm LVPWd: 1.0 cm LVIDs: 3.5 cm EF(Teich): 55 % DOPPLER MV E Serge: 0.60 m/s MV A Serge: 0.38 m/s MV PHT: 44.59 ms MVA By PHT: 4.93 cm LVOT Vmax: 0.83 m/s AV Vmax: 1.25 m/s TR Vmax: 4.13 m/s TR maxP mmHg RVSP: 78.26 mmHg FINDINGS ------- Procedure:2D images, m-mode, color and spectral Doppler were obtained and reviewed. ECG rhythm:Sinus rhythm. Study quality:This was a technically adequate study. This was a technically difficult study with s uboptimal apical views. Left Ventricle:The left ventricular size is normal. Left ventricular wall thickness is normal. T here is normal global left ventricular contractility. Overall left ventricular systolic function i s normal with, an EF between 60 - 65 %. There is septal flattening in systole which is consistent with right ventricular pressure overload. The diastolic filling pattern is normal for the age of t he patient. Right Ventricle:The right ventricle is moderately enlarged. The right ventricular systolic functio n is moderately impaired. Left Atrium:The left atrium is mildly dilated. Right Atrium:The right atrium is mildly enlarged. Aortic Valve:The aortic valve is trileaflet, and appears structurally normal. No aortic stenosis or regurgitation. Mitral Valve:Normal appearing mitral valve. There is trace mitral regurgitation. Tricuspid Valve:The tricuspid valve appears structurally normal. Moderate tricuspid regurgitation present. There is moderate to severe pulmonary hypertension, the peak PA systolic pressure and pu lmonary artery flow acceleration time are more consistent with chronic PAH than acute. Pulmonic Valve:The pulmonic valve is normal. Trace/mild (physiologic) pulmonic regurgitation. Aorta:The aortic root, ascending aorta and aortic arch appear normal. IVC:The inferior vena cava was not well visualized. Pericardium:The pericardium is normal. There is no pericardial effusion. CONCLUSIONS 1. There is normal global left ventricular contractility. 2. Overall left ventricular systolic function is normal with, an EF between 60 - 65 %. 3. There is septal flattening in systole which is consistent with right ventricular pressure overloa d. 4. The right ventricle is moderately enlarged. 5. The right ventricular systolic function is moderately impaired. 6. Moderate tricuspid regurgitation present. 7. There is moderate to severe pulmonary hypertension, the peak PA systolic pressure and pulmonary artery flow acceleration time are more consistent with chronic PAH than acute. Electronically Signed By: Valentin Hernandez MD, FACC Electronically Signed On: 15:41:18
[2016-11-24] MEDS: NICOTINE 21 MG PATCH TOP SCH (17:30)
[2016-11-24] MEDS: ENOXAPARIN 40 MG/0.4 ML PFS SQ SCH (17:30)
[2016-11-24] MEDS: CEFTRIAXONE 1 GM in D5W 100 ML IV SCH (17:33)
[2016-11-24] MEDS: AZITHROMYCIN 500 MG in D5W 250 ML IV SCH (20:11)
[2016-11-24] MEDS: CHLORHEXIDINE (HIBICLENS) 4 OZ BOTTLE TOP SCH (21:12)
[2016-11-24] MEDS: METHYLPREDNISOLONE 40 MG/1 ML VIAL IV SCH (21:14)
[2016-11-24] MEDS: FUROSEMIDE 20 MG/2 ML VIAL IV SCH (23:33)
[2016-11-24] MEDS: ZOLPIDEM TARTRATE 5 MG TAB PO PRN (23:39)
--- NOTE | 2016-11-25 00:19 | HIMCONS ---
DATE OF CONSULT: REQUESTING PHYSICIAN: Jamil Brown MD REASON FOR CONSULTATION: Respiratory failure. 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 The patient has not been feeling well for 5 days prior to his coming to the hospital with worsening breathing, congestion, chest tightness, and wheezing, coughing up phlegm, and he quit smoking 1 week prior to his admission because he could not do it. He has been using nebulizers and oxygen at home and could not walk and eventually ended up in the emergency room after end of hospital considering this as a better hospital. He was given IV Lasix and steroids and has been placed on BiPAP. He has been very hypoxic. He has been somewhat better since his admission and has been off the BiPAP and on oxygen and doing fairly well. Denies any hemoptysis, hematemesis, hematochezia, nausea, vomiting, diarrhea, constipation. 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 History of right lung fibrosis. ALLERGIES: NO KNOWN DRUG ALLERGIES. MEDICATIONS: In the chart were noted. FAMILY HISTORY: Significant for hypertension and cardiac disorder. SOCIAL HISTORY: The patient had been a nicotine addict most of his adult life. Has been a heavy smoker and quit about 1 week prior to coming to the hospital. No history of drug abuse. Has been using alcohol. REVIEW OF SYSTEMS: A detailed review of systems is negative except for as mentioned in the history of present illness. PHYSICAL EXAMINATION: VITAL SIGNS: Temperature is 97.6 degrees Fahrenheit, pulse is 76, respiratory rate is 22, blood pressure 112/60, and pulse ox 95% on 3 liters nasal cannula. CHEST: Decreased bilateral air entry. No wheezing. HEART: S1, S2. Regular. No murmur. EXTREMITIES: No clubbing, cyanosis, or edema. ABDOMEN: Soft and nontender. Bowel sounds present. Hepatosplenomegaly is absent. NEURO: The patient is moving all extremities. LABORATORY DATA: White count is 11.8, hemoglobin is 12.0, hematocrit is 37.1, and platelets are 209. Blood gas showed a pH of 7.24, pCO2 of 44, PO2 of 118, that was on 10/5 BiPAP with 35% oxygen. Sodium 139, potassium 5.8, chloride 100, CO2 is 28, BUN 16, creatinine 0.6, glucose is 145. CPK and troponin-I within normal limits. IMAGING REPORTS: Chest x-ray was done on admission and was seen personally. The patient seems to have bilateral diffuse pulmonary edema/infiltrates. Cannot rule out pulmonary fibrosis on the right and effusion on the left side. IMPRESSION: 1. [id number] respiratory failure which could be multifactorial including chronic obstructive pulmonary disease exacerbation and congestive heart failure. 2. History of diabetes. 3. Pneumonia. 4. Multiple other medical issues. 5. Pulmonary fibrosis. PLAN: The patient has been on Rocephin and Zithromax. Has been doing fairly well while he was in ICU and is remaining on 3 L oxygen at this time. Has been using Lovenox for DVT prophylaxis and Solu-Medrol 60 mg IV q.6 hours. Blood gas is very acidotic with both respiratory and metabolic acidosis, and therefore, I would start the patient back on BiPAP while he is sleeping at night and continue him on noninvasive ventilation until we do gas in the morning. I would cut down the Solu- Medrol to 40 mg IV every 8 hours and also get a CAT scan of the chest without contrast if he can do it in the morning. Would get a blood gas in the morning as well. The patient would need long-term care and probably need some therapy for his pulmonary fibrosis as well. The patient was told in no uncertain terms that he needs to quit smoking. He agrees and understands, wants to go ahead and do it. I had a prolonged discussion with the patient's family as well. The patient remains critically ill. He is in danger of getting worse. I would keep the patient in ICU for tonight. Thank you very much for the consultation. Time spent approximately was 35 minutes. [id number]
[2016-11-25] MEDS: LORAZEPAM 2 MG/ML VIAL IV PRN ×2 (01:00→21:16)
[2016-11-25] MEDS: Albuterol/Ipratropium Neb 3 ML NEB NEB SCH ×4 (01:29→20:46)
[2016-11-25 05:41] LABS: ALLEN'S TEST PASS; BEb 1.5 (+/- 2); TCO2 29.2 MMOL/L (23-27)
[2016-11-25 05:51] LABS: ABG Draw Site Right Radial
[2016-11-25] MEDS: TIZANIDINE 2 MG TAB PO SCH ×3 (05:56→20:33)
[2016-11-25] MEDS: PRIMIDONE 250 MG TAB PO SCH ×3 (05:56→20:34)
[2016-11-25] MEDS: LAMOTRIGINE 100 MG TAB PO SCH ×3 (05:57→20:33)
[2016-11-25] MEDS: PREGABALIN 100 MG CAP PO SCH ×3 (05:57→20:33)
[2016-11-25] MEDS: FUROSEMIDE 20 MG/2 ML VIAL IV SCH ×3 (05:57→21:16)
[2016-11-25] MEDS: METHYLPREDNISOLONE 40 MG/1 ML VIAL IV SCH ×3 (05:57→21:16)
[2016-11-25 06:03] LABS: MPV 9.1 fL (7.4-10.4)
[2016-11-25 06:15] LABS: BLOOD UREA NITROGEN 19 MG/DL (9-20); CALCIUM 8.9 MG/DL (8.4-10.2); CALCULATED OSMOLALITY 264 MOs/Kg (270-290); CHLORIDE 99 mEq/L (98-107); GLUCOSE 135 MG/DL (70-99); SODIUM LEVEL 135 mEq/L (137-146)
[2016-11-25] MEDS: REGULAR INSULIN 100 UNITS/ML - 3 ML VIAL SQ SCH ×4 (07:19→20:32)
--- NOTE | 2016-11-25 07:57 | GENMEDPROG ---
Chief Complaint: More lethargic today. Says he feels a little better. Still significant congestion though slightly better Notes Reviewed: Yes Events from last night noted and discussed with Clinical Staff Current Medication List: Reviewed Currently: Reports: Cough, Wheezing, CHAVEZ, SOB. Denies: Sputum, Nausea and Vomiting, Abdominal Pain, Chest Pain DVT Prophylaxis: Yes - Physical Examination Vital Signs and I&O: Last Vital Signs Temp 97.7 F 11/25/16 03:00 Pulse 102 11/25/16 06:00 Resp 18 11/25/16 05:00 BP 113/59 L 11/25/16 06:00 Pulse Ox 94 11/25/16 06:00 Oxygen Pulse Oxygen Saturation 94 O2 Device Nasal Cannula Oxygen Flow Rate 3 Fraction of Inspired Oxygen ( 35 FIO2) Intake & Output 11/22/16 11/23/16 11/24/16 11/25/16 23:59 23:59 23:59 23:59 Intake Total 387 3181 751 Output Total 975 1650 1800 Balance -588 1531 -1049 Patient's weight 91.716 kg 90.582 kg General: Oriented x3, Cooperative, Moderate distress, Weakness, Fatigue. negative: Well appearing (Acutely ill-appearing) HEENT: Normal, PERRLA, EOMI, Anicteric Sclera Neck: Non-tender, Full range of motion, Normal Trachea alignment, Normal inspection. negative: JVD Lymphatics: Normal. negative: Adenopathy, Inguinal Erythema Respiratory: Rales, Rhonchi, Tachypnea. negative: Wheezes (No wheezes today) Cardiovascular: Regular rate and rhythm, No Gallops,Rubs/Murmurs GI: Normal bowel sounds, Soft, No hepatospenomegaly Extremities/Musculoskeletal: Normal pulses. negative: Tenderness, Swelling, Edema Skin: Warm,Dry and Intact, No rashes, No breakdown, No significant lesion Neurological: Normal speech, Strength at 5/5 X4 ext, Normal tone Psych/Mental Status: Appropriate, Normal Affect, Cooperative Lab/DI/Studies Reviewed: Laboratory Results - last 24 hr 11/24/16 11/24/16 11/24/16 11:17 17:01 20:08 WBC RBC Hgb Hct MCV MCH MCHC RDW Plt Count MPV Puncture Site pH pCO2 pO2 HCO3 Total CO2 Base Excess FiO2 % Mode BiPAP Specimen Drawn By Sodium Potassium Chloride Carbon Dioxide Anion Gap BUN Creatinine Estimated GFR (MDRD) Glucose POC Capillary Glucose 117 H 177 H 164 H Calculated Osmolality Calcium Brj-H-Nisyopfqhhg Pept 11/25/16 11/25/16 11/25/16 05:26 05:31 05:35 WBC RBC Hgb Hct MCV MCH MCHC RDW Plt Count MPV Puncture Site Right radial pH 7.360 pCO2 49.0 H pO2 110.0 H HCO3 27.7 H Total CO2 29.2 H Base Excess 1.5 FiO2 % 35 Mode BiPAP 10/5 Specimen Drawn By Whitr Sodium 135 L Potassium 4.3 D Chloride 99 Carbon Dioxide 27 Anion Gap 13 BUN 19 Creatinine 0.60 L Estimated GFR (MDRD) > 60 Glucose 135 H POC Capillary Glucose 135 H Calculated Osmolality 264 L Calcium 8.9 [id number]-V-Drcvgumyxsp Pept 151 11/25/16 05:35 WBC 10.4 RBC 3.39 L Hgb 10.7 L D Hct 32.5 L MCV 96 H MCH 31.5 MCHC 32.9 L RDW 13.6 Plt Count 205 MPV 9.1 Puncture Site pH pCO2 pO2 HCO3 Total CO2 Base Excess FiO2 % Mode BiPAP Specimen Drawn By Sodium Potassium Chloride Carbon Dioxide Anion Gap BUN Creatinine Estimated GFR (MDRD) Glucose POC Capillary Glucose Calculated Osmolality Calcium [id number]-Rwkkqhyowqb Pept - Assessment (1) Acute respiratory failure Acute J96.00 - ACUTE RESPIRATORY FAILURE, UNSP W HYPOXIA OR HYPERCAPNIA Qualifiers: Respiratory failure complication: hypoxia Qualified Code(s): J96.01 - Acute respiratory failure with hypoxia Comment/Plan: Appears more lethargic and fatigued today. No wheezes heard but still moderate congestion. He states he feels a little bit better and is breathing a little easier. Continue BiPAP as needed. IV steroids, IV antibiotics and nebulizer treatments. (2) Acute bronchopneumonia Acute J18.0 - BRONCHOPNEUMONIA, UNSPECIFIED ORGANISM Comment/Plan: IV antibiotics and pulmonary toilet. (3) Diabetes mellitus Acute E11.9 - TYPE 2 DIABETES MELLITUS WITHOUT COMPLICATIONS Qualifiers: Diabetes mellitus type: type 2 Diabetes mellitus complication status: without complication Diabetes mellitus complication detail: D Diabetic retinopathy severity: D Proliferative retinopathy type: P Diabetes mellitus macular edema: D Diabetes mellitus nursing home insulin use: without nursing home use Laterality: L Chronic kidney disease stage: C Qualified Code(s): E11.9 - Type 2 diabetes mellitus without complications Comment/Plan: Accu-Cheks and sliding scale insulin (4) Resting tremor Acute R25.9 - UNSPECIFIED ABNORMAL INVOLUNTARY MOVEMENTS Comment/Plan: Continue current medications (5) Congestive heart failure Suspected I50.9 - HEART FAILURE, UNSPECIFIED Qualifiers: Congestive heart failure type: unspecified congestive heart failure type Congestive heart failure chronicity: acute Qualified Code(s): I50.9 - Heart failure, unspecified Comment/Plan: Clinically he appears congested like heart failure however his BNP is normal at 307 which effectively rules out CHF. Will check 2D echo (6) Pulmonary fibrosis Acute J84.10 - PULMONARY FIBROSIS, UNSPECIFIED Comment/Plan: Continue IV steroids nebulizer treatments. Encourage smoking cessation Case Care Discussed with: Patient, Nursing Staff, Physical Therapy, Resource Management, Respiratory Therapy, Radio Communications Superintendent Total Time: 50 minutes Critical Care: Yes
[2016-11-25 08:09] LABS: SEG NEUTROPHIL 65 % (45-76); TOTAL CELL COUNT 100
--- NOTE | 2016-11-25 08:27 | DIRPT ---
CLINICAL DATA: Pneumonia. EXAM: PORTABLE CHEST 1 VIEW COMPARISON: 11/23/2016. No other comparison studies available. FINDINGS: 0549 hours. There are persistent low lung volumes. The heart is enlarged. There is persistent central vascular enlargement with bilateral interstitial and airspace opacities bilaterally. Overall, there has been slight improvement over the last 2 days. No pneumothorax or significant pleural effusion seen. The bones appear unchanged. IMPRESSION: Slight improvement in bilateral pulmonary opacities, likely reflecting improving pulmonary edema. Underlying chronic interstitial lung disease suspected. Patient is scheduled for CT today. Electronically Signed By: Ankit Saenz M.D. On: 11/25/2016 08:25
--- NOTE | 2016-11-25 09:25 | PCM.PULM ---
Chief Complaint: Respiratory failure acute Pneumonia Pulmonary fibrosis CHF Uneventful overnight Patient in bed alert and responsive. Breathing is some better on BIPAP. Current complaints: SOB,CHAVEZ,cough,wheeze Medication list and notes reviewed:yes, Events from last night noted and discussed with Clinical Staff - Physical Examination Vital Signs and I&O: Last Vital Signs Temp 97.8 F 11/25/16 07:00 Pulse 58 L 11/25/16 08:00 Resp 18 11/25/16 05:00 BP 99/54 L 11/25/16 08:00 Pulse Ox 96 11/25/16 08:00 Oxygen Pulse Oxygen Saturation 96 O2 Device Nasal Cannula Oxygen Flow Rate 3 Fraction of Inspired Oxygen ( 35 FIO2) Intake & Output 11/22/16 11/23/16 11/24/16 11/25/16 23:59 23:59 23:59 23:59 Intake Total 387 3181 751 Output Total 975 1650 1800 Balance -588 1531 -1049 Patient's weight 91.716 kg 90.582 kg General: Alert, Oriented x3, Cooperative, No acute distress, Weakness, Fatigue Respiratory: Diminished, Wheezes Cardiovascular: Regular rate, Regular rate and rhythm, Normal S1, No Gallops, Rubs/Murmurs, Normal S2 GI: Normal bowel sounds, Soft, Non tender, No hepatospenomegaly, No masses Extremities/Musculoskeletal: Normal pulses Skin: Warm,Dry and Intact, No rashes, No breakdown, No significant lesion Neurological: Normal speech, Cranial nerves 3-12 NL Psych/Mental Status: Appropriate Result Diagrams: 11/25/16 05:35 11/25/16 05:35 Labs (last 24 hours): Laboratory Results - last 24 hr 11/24/16 11/24/16 11/24/16 11:17 17:01 20:08 WBC RBC Hgb Hct MCV MCH MCHC RDW Plt Count MPV Neut % (Auto) Lymph % (Auto) [place] % (Auto) Eos % (Auto) Baso % (Auto) Absolute Neuts (auto) Absolute Lymphs (auto) Seg Neuts % (Manual) Band Neutrophils % Lymphocytes % (Manual) Monocytes % (Manual) Basophils % (Manual) Myelocytes % Absolute Neutrophils Absolute Lymphocytes Platelet Estimate RBC Morphology Puncture Site pH pCO2 pO2 HCO3 Total CO2 Base Excess FiO2 % Mode BiPAP Specimen Drawn By Sodium Potassium Chloride Carbon Dioxide Anion Gap BUN Creatinine Estimated GFR (MDRD) Glucose POC Capillary Glucose 117 H 177 H 164 H Calculated Osmolality Calcium Hwz-O-Xsjqvkftlgr Pept 11/25/16 11/25/16 11/25/16 05:26 05:31 05:35 WBC RBC Hgb Hct MCV MCH MCHC RDW Plt Count MPV Neut % (Auto) Lymph % (Auto) [place] % (Auto) Eos % (Auto) Baso % (Auto) Absolute Neuts (auto) Absolute Lymphs (auto) Seg Neuts % (Manual) Band Neutrophils % Lymphocytes % (Manual) Monocytes % (Manual) Basophils % (Manual) Myelocytes % Absolute Neutrophils Absolute Lymphocytes Platelet Estimate RBC Morphology Puncture Site Right radial pH 7.360 pCO2 49.0 H pO2 110.0 H HCO3 27.7 H Total CO2 29.2 H Base Excess 1.5 FiO2 % 35 Mode BiPAP 10/5 Specimen Drawn By Whitr Sodium 135 L Potassium 4.3 D Chloride 99 Carbon Dioxide 27 Anion Gap 13 BUN 19 Creatinine 0.60 L Estimated GFR (MDRD) > 60 Glucose 135 H POC Capillary Glucose 135 H Calculated Osmolality 264 L Calcium 8.9 Wik-V-Mcfxjodcipa Pept 151 11/25/16 05:35 WBC 10.4 RBC 3.39 L Hgb 10.7 L D Hct 32.5 L MCV 96 H MCH 31.5 MCHC 32.9 L RDW 13.6 Plt Count 205 MPV 9.1 Neut % (Auto) Cancelled Lymph % (Auto) Cancelled Schoolcraft % (Auto) Cancelled Eos % (Auto) Cancelled Baso % (Auto) Cancelled Absolute Neuts (auto) Cancelled Absolute Lymphs (auto) Cancelled Seg Neuts % (Manual) 65 Band Neutrophils % 5 Lymphocytes % (Manual) 17 Monocytes % (Manual) 11 H Basophils % (Manual) 1 Myelocytes % 1 H Absolute Neutrophils 7.28 Absolute Lymphocytes 1.77 Platelet Estimate Large plts present RBC Morphology 1+ polychrom Puncture Site pH pCO2 pO2 HCO3 Total CO2 Base Excess FiO2 % Mode BiPAP Specimen Drawn By Sodium Potassium Chloride Carbon Dioxide Anion Gap BUN Creatinine Estimated GFR (MDRD) Glucose POC Capillary Glucose Calculated Osmolality Calcium Yil-P-Kyjvnbrudma Pept Lab/DI/Studies Reviewed: Chest x-ray was seen personally patient seems to have improving right-sided infiltrate persistent left-sided diffuse infiltrate Medications Enoxaparin Sodium (Lovenox) 40 mg SQ DAILY@1800 [facility] Stop: 12/07/16 19:59 Last Admin: 11/24/16 17:30 Dose: 40 mg Furosemide (Lasix) 20 mg IV Q8 [facility] Stop: 12/08/16 21:59 Last Admin: 11/25/16 05:57 Dose: 20 mg Pregabalin (Lyrica) 100 mg PO TID [facility] Stop: 12/07/16 20:59 Last Admin: 11/25/16 05:57 Dose: 100 mg Guaifenesin (Robitussin) 10 ml PO Q6H PRN PRN Reason: Cough - First Option Stop: 12/07/16 16:59 Insulin Human Regular (Humulin R) 0 units SQ ACHS [facility] PRN Reason: Protocol Stop: 12/07/16 16:59 Last Admin: 11/25/16 07:19 Dose: Not Given Lamotrigine (Lamictal) 100 mg PO TID [facility] Stop: 12/07/16 20:59 Last Admin: 11/25/16 05:57 Dose: 100 mg Albuterol/Ipratropium (Duoneb) 3 ml NEB Q2H PRN PRN Reason: Wheezing Stop: 12/07/16 16:59 Albuterol/Ipratropium (Duoneb) 3 ml NEB RTQ6 [facility] Stop: 12/07/16 16:59 Last Admin: 11/25/16 08:46 Dose: 3 ml Azithromycin 500 mg/ Dextrose 250 mls @ 250 mls/hr IV Q24H [facility] Stop: 11/28/16 19:59 Last Admin: 11/24/16 20:11 Dose: 250 mls/hr Ceftriaxone Sodium 1 gm/ (Dextrose) 100 mls @ 200 mls/hr IV Q24H [facility] Stop: 11/30/16 17:59 Last Admin: 11/24/16 17:33 Dose: 200 mls/hr Buprenorphine HCl (Suboxone) 1 tab SL BID [facility] Stop: 12/07/16 20:59 Last Admin: 11/25/16 09:39 Dose: 1 tab Benzonatate (Tessalon) 100 mg PO Q8H PRN PRN Reason: Cough - Alternative Stop: 12/07/16 16:59 Docusate Sodium (Colace) 100 mg PO BID PRN PRN Reason: Stool Softener Stop: 12/07/16 16:59 Lorazepam (Ativan) 1 mg IV Q4H PRN PRN Reason: Anxiety Stop: 12/07/16 16:59 Last Admin: 11/25/16 01:00 Dose: 1 mg Methylprednisolone Sodium Succinate (Solu-Medrol) 40 mg IV Q8H [facility] Stop: 12/08/16 21:59 Last Admin: 11/25/16 05:57 Dose: 40 mg Nicotine (Nicoderm) 21 mg TOP Q24H [facility] Stop: 12/07/16 16:59 Last Admin: 11/24/16 17:30 Dose: 21 mg Primidone (Mysoline) 250 mg PO TID [facility] Stop: 12/07/16 20:59 Last Admin: 11/25/16 05:56 Dose: 250 mg Sodium Chloride (Normal Saline) 1,000 mls @ 50 mls/hr IV Q24H [facility] Stop: 12/08/16 07:59 Last Admin: 11/25/16 09:39 Dose: 50 mls/hr Tamsulosin HCl (Flomax) 0.4 mg PO DAILY [facility] Stop: 12/08/16 08:59 Last Admin: 11/25/16 09:39 Dose: 0.4 mg Zolpidem Tartrate (Ambien) 5 mg PO 2100,2200 PRN PRN Reason: Sleep or Insomnia Stop: 12/07/16 16:59 Last Admin: 11/24/16 23:39 Dose: 5 mg Tizanidine HCl (Zanaflex) 4 mg PO TID [facility] Stop: 12/07/16 20:59 Last Admin: 11/25/16 05:56 Dose: 4 mg Trazodone HCl (Desyrel) 100 mg PO BID [facility] Stop: 12/07/16 20:59 Last Admin: 11/25/16 09:39 Dose: 100 mg - Assessment/Plan (1) Acute bronchopneumonia Acute J18.0 - BRONCHOPNEUMONIA, UNSPECIFIED ORGANISM (2) Acute respiratory failure Acute J96.00 - ACUTE RESPIRATORY FAILURE, UNSP W HYPOXIA OR HYPERCAPNIA hypoxia J96.01 - Acute respiratory failure with hypoxia Comment/Plan: His infiltrate seem to be improving patient has been on oxygen has been doing fairly well has been off of BiPAP most of the day today I would continue the patient to be on BiPAP when he is sleeping at night and continue other supportive care along with antibiotics DVT and GI prophylaxis Patient remains critically ill and is in danger of getting worse would keep the patient in ICU (3) Congestive heart failure Acute I50.9 - HEART FAILURE, UNSPECIFIED unspecified congestive heart failure type unspecified congestive heart failure chronicity I50.9 - Heart failure, unspecified Comment/Plan: Cardiology consult up appreciated continue other supportive care (4) Pulmonary fibrosis Acute J84.10 - PULMONARY FIBROSIS, UNSPECIFIED Comment/Plan: Would repeat a CT scan of the chest I personally saw and evaluated the patient.: Yes Total Face to Face Time: 35 minutes Case Care Discussed with: Patient, Nursing Staff Education/Counseling Given To: Patient Education/Counseling Given Regarding: Diagnosis, Treatment, Prognosis, Follow Up , Disposition Plan
[2016-11-25] MEDS: NALOXONE 2 MG SL SCH ×2 (09:39→20:34)
[2016-11-25] MEDS: NS 1,000 ML IV SCH (09:39)
[2016-11-25] MEDS: TRAZODONE 100 MG TAB PO SCH ×2 (09:39→20:33)
[2016-11-25] MEDS: LEVOTHYROXINE 25 MCG (0.025 MG) TAB PO SCH (09:39)
[2016-11-25] MEDS: TAMSULOSIN HCL 0.4 MG CAP PO SCH (09:39)
[2016-11-25] MEDS: BUPRENORPHINE SL SCH ×2 (09:39→20:34)
--- NOTE | 2016-11-25 13:54 | DIRPT ---
CLINICAL DATA: History of left upper lobectomy. Pulmonary fibrosis on home oxygen. Acute pneumonia with respiratory failure, shortness of breath, cough and wheezing. EXAM: CT CHEST WITHOUT CONTRAST TECHNIQUE: Multidetector CT imaging of the chest was performed following the standard protocol without IV contrast. COMPARISON: Chest radiograph from one day prior. No prior chest CT. FINDINGS: Study is motion degraded. Mediastinum/Nodes: Mild cardiomegaly. Trace pericardial fluid/thickening. Extensive coronary atherosclerosis. Atherosclerotic nonaneurysmal thoracic aorta. Dilated main pulmonary artery (3.7 cm diameter). Normal visualized thyroid. Normal esophagus. No axillary adenopathy. Moderately enlarged 1.7 cm subcarinal node (series 3/ image 32). Moderately enlarged 1.7 cm left superior mediastinal prevascular node (series 3/image 18). Hilar nodes are poorly delineated on this noncontrast study. Lungs/Pleura: No pneumothorax. No pleural effusion. Status post left upper lobectomy. No acute consolidative airspace disease, significant pulmonary nodules or lung masses, noting exclusion of a tiny portion of the basilar lower lobes from the study. There is extensive patchy reticulation, architectural distortion and traction bronchiectasis throughout both lungs, involving the peribronchovascular and peripheral portions of the lungs, without a clear apicobasilar gradient. No jordana honeycombing. Upper abdomen: Unremarkable. Musculoskeletal: No aggressive appearing focal osseous lesions. Mild degenerative changes in the thoracic spine. IMPRESSION: 1. Extensive patchy reticulation, traction bronchiectasis and architectural distortion throughout both lungs. Findings are most suggestive of severe fibrotic lung disease due to chronic hypersensitivity pneumonitis or sarcoidosis. Fibrotic nonspecific interstitial pneumonia (NSIP) is an additional consideration. Usual interstitial pneumonia (UIP) is unlikely given the involvement of the entire cross-section of the lung and the absence of a basilar predominance. 2. No acute consolidative airspace disease to suggest superimposed pneumonia. 3. Moderate mediastinal lymphadenopathy, nonspecific. 4. Mild cardiomegaly. Extensive coronary atherosclerosis. 5. Dilated main pulmonary artery, likely indicating pulmonary arterial hypertension. Electronically Signed By: Stefan Collins M.D. On: 11/25/2016 13:50
[2016-11-25] MEDS: CEFTRIAXONE 1 GM in D5W 100 ML IV SCH (17:52)
[2016-11-25] MEDS: NICOTINE 21 MG PATCH TOP SCH (17:52)
[2016-11-25] MEDS: ENOXAPARIN 40 MG/0.4 ML PFS SQ SCH (17:52)
[2016-11-25] MEDS: AZITHROMYCIN 500 MG in D5W 250 ML IV SCH (20:34)
[2016-11-25] MEDS: CHLORHEXIDINE (HIBICLENS) 4 OZ BOTTLE TOP SCH (20:49)
[2016-11-25] MEDS: ZOLPIDEM TARTRATE 5 MG TAB PO PRN (23:35)
[2016-11-26] MEDS: Albuterol/Ipratropium Neb 3 ML NEB NEB SCH ×4 (02:11→21:03)
[2016-11-26] MEDS: PRIMIDONE 250 MG TAB PO SCH ×3 (05:12→22:10)
[2016-11-26] MEDS: METHYLPREDNISOLONE 40 MG/1 ML VIAL IV SCH ×3 (05:12→22:10)
[2016-11-26] MEDS: TIZANIDINE 2 MG TAB PO SCH ×3 (05:12→22:09)
[2016-11-26] MEDS: LAMOTRIGINE 100 MG TAB PO SCH ×3 (05:12→22:10)
[2016-11-26] MEDS: PREGABALIN 100 MG CAP PO SCH ×3 (05:12→22:10)
[2016-11-26] MEDS: FUROSEMIDE 20 MG/2 ML VIAL IV SCH ×3 (05:12→22:10)
[2016-11-26] MEDS: REGULAR INSULIN 100 UNITS/ML - 3 ML VIAL SQ SCH ×4 (06:28→22:10)
[2016-11-26] MEDS: LEVOTHYROXINE 25 MCG (0.025 MG) TAB PO SCH (08:39)
[2016-11-26] MEDS: NS 1,000 ML IV SCH (08:39)
[2016-11-26] MEDS: BUPRENORPHINE SL SCH ×2 (08:39→22:09)
[2016-11-26] MEDS: NALOXONE 2 MG SL SCH ×2 (08:39→22:09)
[2016-11-26] MEDS: TAMSULOSIN HCL 0.4 MG CAP PO SCH (08:39)
[2016-11-26] MEDS: TRAZODONE 100 MG TAB PO SCH ×2 (08:39→22:10)
--- NOTE | 2016-11-26 09:30 | GENMEDPROG ---
Chief Complaint: Overall improving. Still appears weak and lethargic at times. Respiratory status has improved significantly. Much less congested Notes Reviewed: Yes Events from last night noted and discussed with Clinical Staff Current Medication List: Reviewed Currently: Reports: Cough, Wheezing, CHAVEZ, SOB. Denies: Sputum, Nausea and Vomiting, Abdominal Pain, Chest Pain DVT Prophylaxis: Yes - Physical Examination Vital Signs and I&O: Last Vital Signs Temp 97.8 F 11/26/16 07:00 Pulse 68 11/26/16 09:00 Resp 18 11/26/16 06:00 BP 109/58 L 11/26/16 09:00 Pulse Ox 92 11/26/16 09:00 Oxygen Pulse Oxygen Saturation 92 O2 Device Nasal Cannula Oxygen Flow Rate 3 Fraction of Inspired Oxygen ( 35 FIO2) Intake & Output 11/23/16 11/24/16 11/25/16 11/26/16 23:59 23:59 23:59 23:59 Intake Total 387 3181 2586 576 Output Total 975 1650 3725 1175 Balance -588 1531 -1139 -599 Patient's weight 91.716 kg 90.582 kg 90.582 kg General: Oriented x3, Cooperative, Moderate distress, Weakness, Fatigue. negative: Well appearing (Acutely ill-appearing) HEENT: Normal, PERRLA, EOMI, Anicteric Sclera Neck: Non-tender, Full range of motion, Normal Trachea alignment, Normal inspection. negative: JVD Lymphatics: Normal. negative: Adenopathy, Inguinal Erythema Respiratory: Rales, Rhonchi, Tachypnea. negative: Wheezes (No wheezes today) Cardiovascular: Regular rate and rhythm, No Gallops,Rubs/Murmurs GI: Normal bowel sounds, Soft, No hepatospenomegaly Extremities/Musculoskeletal: Normal pulses. negative: Tenderness, Swelling, Edema Skin: Warm,Dry and Intact, No rashes, No breakdown, No significant lesion Neurological: Normal speech, Strength at 5/5 X4 ext, Normal tone Psych/Mental Status: Appropriate, Normal Affect, Cooperative Lab/DI/Studies Reviewed: Laboratory Results - last 24 hr 11/25/16 11/25/16 11/25/16 11:48 17:47 20:31 POC Capillary Glucose 238 H 216 H 297 H 11/26/16 06:08 POC Capillary Glucose 218 H - Assessment (1) Acute respiratory failure Acute J96.00 - ACUTE RESPIRATORY FAILURE, UNSP W HYPOXIA OR HYPERCAPNIA Qualifiers: Respiratory failure complication: hypoxia Qualified Code(s): J96.01 - Acute respiratory failure with hypoxia Comment/Plan: Still lethargic and fatigued appearing but more alert than yesterday. Congestion has improved significantly over last several days though still with coarse breath sounds. Will transfer out of the ICU. Last physical therapy to start working with him and increase activity. Continue IV steroids, IV antibiotics and nebulizer treatments. Slowly improving overall (2) Acute bronchopneumonia Acute J18.0 - BRONCHOPNEUMONIA, UNSPECIFIED ORGANISM Comment/Plan: IV antibiotics and pulmonary toilet. (3) Diabetes mellitus Acute E11.9 - TYPE 2 DIABETES MELLITUS WITHOUT COMPLICATIONS Qualifiers: Diabetes mellitus type: type 2 Diabetes mellitus complication status: without complication Diabetes mellitus complication detail: D Diabetic retinopathy severity: D Proliferative retinopathy type: P Diabetes mellitus macular edema: D Diabetes mellitus termite treater helper insulin use: without termite treater helper use Laterality: L Chronic kidney disease stage: C Qualified Code(s): E11.9 - Type 2 diabetes mellitus without complications Comment/Plan: Accu-Cheks and sliding scale insulin (4) Resting tremor Acute R25.9 - UNSPECIFIED ABNORMAL INVOLUNTARY MOVEMENTS Comment/Plan: Continue current medications (5) Congestive heart failure Suspected I50.9 - HEART FAILURE, UNSPECIFIED Qualifiers: Congestive heart failure type: unspecified congestive heart failure type Congestive heart failure chronicity: acute Qualified Code(s): I50.9 - Heart failure, unspecified Comment/Plan: Clinically he appears congested like heart failure however his BNP is normal at 307 which effectively rules out CHF. 2D echo is okay (6) Pulmonary fibrosis Acute J84.10 - PULMONARY FIBROSIS, UNSPECIFIED Comment/Plan: Continue IV steroids nebulizer treatments. Encourage smoking cessation Case Care Discussed with: Patient, Nursing Staff, Resource Management
--- NOTE | 2016-11-26 09:51 | PCM.PULM ---
Chief Complaint: Patient in Intensive care unit alert and responsive follows commands. Breathing has been relatively stable on oxygen Medication list and notes reviewed:yes, Events from last night noted and discussed with Clinical Staff GI/DVT prophylaxis:yes - Physical Examination Vital Signs and I&O: Last Vital Signs Temp 97.8 F 11/26/16 07:00 Pulse 68 11/26/16 09:00 Resp 18 11/26/16 06:00 BP 109/58 L 11/26/16 09:00 Pulse Ox 92 11/26/16 09:00 Oxygen Pulse Oxygen Saturation 92 O2 Device Nasal Cannula Oxygen Flow Rate 3 Fraction of Inspired Oxygen ( 35 FIO2) Intake & Output 11/23/16 11/24/16 11/25/16 11/26/16 23:59 23:59 23:59 23:59 Intake Total 387 3181 2586 576 Output Total 975 1650 3725 1175 Balance -588 1531 -1139 -599 Patient's weight 91.716 kg 90.582 kg 90.582 kg General: Alert, Oriented x3, No acute distress, Fatigue Respiratory: Diminished, Rhonchi Cardiovascular: Regular rate, Regular rate and rhythm, Normal S1, No Gallops, Rubs/Murmurs, Normal S2 GI: Normal bowel sounds, Soft, Non tender, No hepatospenomegaly, No masses Extremities/Musculoskeletal: Normal pulses Skin: Warm,Dry and Intact, No rashes, No breakdown, No significant lesion Neurological: Normal speech, Normal tone, Cranial nerves 3-12 NL Psych/Mental Status: Normal Affect, Drowsy (occasionally) Result Diagrams: 11/25/16 05:35 11/25/16 05:35 Labs (last 24 hours): Laboratory Results - last 24 hr 11/26/16 06:08 POC Capillary Glucose 218 H Lab/DI/Studies Reviewed: EKG: NSR, NO ST or ST wave changes noted CT CHEST WITHOUT CONTRAST: CT scan of the chest was seen personally patient seems to have diffuse bilateral pulmonary fibrosis with traction bronchiectasis. Patient has no definite pneumonia however cannot rule out patches of pulmonary infiltrates in the interstitium. Moderate mediastinal adenopathy was noted with mild pulmonary artery hypertension. Absent left upper lobe Medications Enoxaparin Sodium (Lovenox) 40 mg SQ DAILY@1800 [facility] Stop: 12/07/16 19:59 Last Admin: 11/24/16 17:30 Dose: 40 mg Furosemide (Lasix) 20 mg IV Q8 [facility] Stop: 12/08/16 21:59 Last Admin: 11/25/16 05:57 Dose: 20 mg Pregabalin (Lyrica) 100 mg PO TID [facility] Stop: 12/07/16 20:59 Last Admin: 11/25/16 05:57 Dose: 100 mg Guaifenesin (Robitussin) 10 ml PO Q6H PRN PRN Reason: Cough - First Option Stop: 12/07/16 16:59 Insulin Human Regular (Humulin R) 0 units SQ ACHS [facility] PRN Reason: Protocol Stop: 12/07/16 16:59 Last Admin: 11/25/16 07:19 Dose: Not Given Lamotrigine (Lamictal) 100 mg PO TID [facility] Stop: 12/07/16 20:59 Last Admin: 11/25/16 05:57 Dose: 100 mg Albuterol/Ipratropium (Duoneb) 3 ml NEB Q2H PRN PRN Reason: Wheezing Stop: 12/07/16 16:59 Albuterol/Ipratropium (Duoneb) 3 ml NEB RTQ6 [facility] Stop: 12/07/16 16:59 Last Admin: 11/25/16 08:46 Dose: 3 ml Azithromycin 500 mg/ Dextrose 250 mls @ 250 mls/hr IV Q24H [facility] Stop: 11/28/16 19:59 Last Admin: 11/24/16 20:11 Dose: 250 mls/hr Ceftriaxone Sodium 1 gm/ (Dextrose) 100 mls @ 200 mls/hr IV Q24H [facility] Stop: 11/30/16 17:59 Last Admin: 11/24/16 17:33 Dose: 200 mls/hr Buprenorphine HCl (Suboxone) 1 tab SL BID [facility] Stop: 12/07/16 20:59 Last Admin: 11/25/16 09:39 Dose: 1 tab Benzonatate (Tessalon) 100 mg PO Q8H PRN PRN Reason: Cough - Alternative Stop: 12/07/16 16:59 Docusate Sodium (Colace) 100 mg PO BID PRN PRN Reason: Stool Softener Stop: 12/07/16 16:59 Lorazepam (Ativan) 1 mg IV Q4H PRN PRN Reason: Anxiety Stop: 12/07/16 16:59 Last Admin: 11/25/16 01:00 Dose: 1 mg Methylprednisolone Sodium Succinate (Solu-Medrol) 40 mg IV Q8H [facility] Stop: 12/08/16 21:59 Last Admin: 11/25/16 05:57 Dose: 40 mg Nicotine (Nicoderm) 21 mg TOP Q24H [facility] Stop: 12/07/16 16:59 Last Admin: 11/24/16 17:30 Dose: 21 mg Primidone (Mysoline) 250 mg PO TID [facility] Stop: 12/07/16 20:59 Last Admin: 11/25/16 05:56 Dose: 250 mg Tamsulosin HCl (Flomax) 0.4 mg PO DAILY [facility] Stop: 12/08/16 08:59 Last Admin: 11/25/16 09:39 Dose: 0.4 mg Zolpidem Tartrate (Ambien) 5 mg PO 2100,2200 PRN PRN Reason: Sleep or Insomnia Stop: 12/07/16 16:59 Last Admin: 11/24/16 23:39 Dose: 5 mg Tizanidine HCl (Zanaflex) 4 mg PO TID [facility] Stop: 12/07/16 20:59 Last Admin: 11/25/16 05:56 Dose: 4 mg Trazodone HCl (Desyrel) 100 mg PO BID [facility] Stop: 12/07/16 20:59 Last Admin: 11/25/16 09:39 Dose: 100 mg - Assessment/Plan (1) Acute bronchopneumonia Acute J18.0 - BRONCHOPNEUMONIA, UNSPECIFIED ORGANISM Comment/Plan: Patient has been improving significantly I agree to transfer the patient out of ICU continue steroids nebulizers DVT and GI prophylaxis and current antibiotics long-term prognosis on this patient is poor given the significant extent of pulmonary fibrosis I would continue other care at this time continue oxygen as needed (2) Acute respiratory failure Acute J96.00 - ACUTE RESPIRATORY FAILURE, UNSP W HYPOXIA OR HYPERCAPNIA hypoxia J96.01 - Acute respiratory failure with hypoxia Comment/Plan: Patient needs to be on BiPAP while he is sleeping at night I think that would help him in the termite treater helper also and probably would needed as an outpatient I would continue the supportive care as mentioned above patient is to regular floor (3) Congestive heart failure Acute I50.9 - HEART FAILURE, UNSPECIFIED unspecified congestive heart failure type unspecified congestive heart failure chronicity I50.9 - Heart failure, unspecified Comment/Plan: Cardiology consult up appreciated continue other supportive care (4) Pulmonary fibrosis Acute J84.10 - PULMONARY FIBROSIS, UNSPECIFIED Comment/Plan: Patient has significant pulmonary fibrosis on the CT scan and I think that long- term prognosis remains poor on this patient he needs to have close pulmonary follow-up
[2016-11-26] MEDS: CEFTRIAXONE 1 GM in D5W 100 ML IV SCH (17:10)
[2016-11-26] MEDS: ENOXAPARIN 40 MG/0.4 ML PFS SQ SCH (17:10)
[2016-11-26] MEDS: NICOTINE 21 MG PATCH TOP SCH (17:12)
[2016-11-26] MEDS: AZITHROMYCIN 500 MG in D5W 250 ML IV SCH (20:35)
[2016-11-26] MEDS: CHLORHEXIDINE (HIBICLENS) 4 OZ BOTTLE TOP SCH (22:18)
[2016-11-26] MEDS: LORAZEPAM 2 MG/ML VIAL IV PRN (23:14)
[2016-11-27] MEDS: Albuterol/Ipratropium Neb 3 ML NEB NEB SCH ×4 (01:46→19:56)
[2016-11-27] MEDS: TIZANIDINE 2 MG TAB PO SCH ×3 (05:00→20:26)
[2016-11-27] MEDS: PRIMIDONE 250 MG TAB PO SCH ×3 (05:00→20:26)
[2016-11-27] MEDS: FUROSEMIDE 20 MG/2 ML VIAL IV SCH ×3 (05:00→21:27)
[2016-11-27] MEDS: REGULAR INSULIN 100 UNITS/ML - 3 ML VIAL SQ SCH ×4 (05:00→20:27)
[2016-11-27] MEDS: LAMOTRIGINE 100 MG TAB PO SCH ×3 (05:00→20:26)
[2016-11-27] MEDS: METHYLPREDNISOLONE 40 MG/1 ML VIAL IV SCH ×3 (05:00→21:27)
[2016-11-27] MEDS: PREGABALIN 100 MG CAP PO SCH ×3 (05:01→20:26)
[2016-11-27 05:06] LABS: ALLEN'S TEST PASS; BEb 11.2 (+/- 2); TCO2 39.5 MMOL/L (23-27)
[2016-11-27 05:07] LABS: ABG Draw Site Right Radial
[2016-11-27 05:39] LABS: MPV 9.5 fL (7.4-10.4)
[2016-11-27 05:50] LABS: BLOOD UREA NITROGEN 19 MG/DL (9-20); CALCIUM 8.3 MG/DL (8.4-10.2); CALCULATED OSMOLALITY 272 MOs/Kg (270-290); CHLORIDE 91 mEq/L (98-107); GLUCOSE 207 MG/DL (70-99); SODIUM LEVEL 137 mEq/L (137-146)
[2016-11-27 06:17] LABS: SEG NEUTROPHIL 53 % (45-76)
--- NOTE | 2016-11-27 09:20 | DIRPT ---
CLINICAL DATA: Pneumonia, respiratory distress EXAM: PORTABLE CHEST 1 VIEW COMPARISON: 11/25/2016 FINDINGS: Cardiomegaly again noted. Again noted bilateral reticular interstitial prominence and fibrotic changes. There is asymmetric hazy opacification of the left upper lobe and left midlung. Superimposed pneumonia is suspected. Less likely asymmetric pulmonary edema. IMPRESSION: Again noted bilateral reticular interstitial prominence and fibrotic changes. There is asymmetric hazy opacification of the left upper lobe and left midlung. Superimposed pneumonia is suspected. Less likely asymmetric pulmonary edema. Electronically Signed By: Russ Bonner M.D. On: 11/27/2016 09:18
[2016-11-27] MEDS ORDERED: BUPRENORPHINE SL ONE ×2 (10:00→21:22)
[2016-11-27] MEDS ORDERED: NALOXONE 2 MG SL ONE ×2 (10:00→21:22)
[2016-11-27] MEDS: TRAZODONE 100 MG TAB PO SCH ×2 (10:01→20:26)
[2016-11-27] MEDS: BUPRENORPHINE SL SCH ×2 (10:01→21:22)
[2016-11-27] MEDS: NALOXONE 2 MG SL SCH ×2 (10:01→21:22)
[2016-11-27] MEDS: TAMSULOSIN HCL 0.4 MG CAP PO SCH (10:01)
[2016-11-27] MEDS: LEVOTHYROXINE 25 MCG (0.025 MG) TAB PO SCH (10:01)
--- NOTE | 2016-11-27 10:23 | PCM.PULM ---
Chief Complaint: Uneventful overnight Patient breathing is slowly improving. Wears BIPAP overnight Current medication list reviewed: yes Notes reviewed:yes, Events from last night noted and discussed with Clinical Staff GI/DVT prophylaxis:yes - Physical Examination Vital Signs and I&O: Last Vital Signs Temp 97.9 F 11/26/16 20:00 Pulse 73 11/27/16 06:00 Resp 18 11/27/16 06:00 BP 94/57 L 11/27/16 06:00 Pulse Ox 97 11/27/16 09:18 Oxygen Pulse Oxygen Saturation 97 O2 Device Nasal Cannula Oxygen Flow Rate 3 Fraction of Inspired Oxygen ( 35 FIO2) Intake & Output 11/24/16 11/25/16 11/26/16 11/27/16 23:59 23:59 23:59 23:59 Intake Total 3185 7336 4518 Output Total 1659 8195 3275 1500 Balance 1531 -1139 -1317 -1500 Patient's weight 90.582 kg 90.582 kg 90.582 kg General: Alert, Oriented x3, Cooperative, No acute distress, Fatigue Respiratory: Diminished, Rales, Rhonchi Cardiovascular: Regular rate, Regular rate and rhythm, Normal S1, No Gallops, Rubs/Murmurs, Normal S2 GI: Normal bowel sounds, Soft, Non tender, No masses Extremities/Musculoskeletal: Normal pulses Skin: Warm,Dry and Intact, No rashes, No breakdown, No significant lesion Neurological: Normal speech, Strength at 5/5 X4 ext, Cranial nerves 3-12 NL Psych/Mental Status: Appropriate Result Diagrams: 11/27/16 04:50 11/27/16 04:50 Labs (last 24 hours): Laboratory Results - last 24 hr 11/27/16 11/27/16 11/27/16 04:49 04:50 04:50 WBC 5.7 RBC 3.33 L Hgb 10.4 L Hct 32.0 L MCV 96 H MCH 31.2 MCHC 32.6 L RDW 13.6 Plt Count 194 MPV 9.5 Neut % (Auto) Cancelled Lymph % (Auto) Cancelled [place] % (Auto) Cancelled Eos % (Auto) Cancelled Baso % (Auto) Cancelled Absolute Neuts (auto) Cancelled Absolute Lymphs (auto) Cancelled Seg Neuts % (Manual) 53 Band Neutrophils % 2 Lymphocytes % (Manual) 34 Monocytes % (Manual) 11 H Absolute Neutrophils 3.14 Absolute Lymphocytes 1.94 Platelet Estimate Large plts present RBC Morphology Reviewed this admiss Puncture Site pH pCO2 pO2 HCO3 Total CO2 Base Excess FiO2 % Specimen Drawn By Sodium 137 Potassium 4.2 Chloride 91 L Carbon Dioxide 35 H Anion Gap 15 BUN 19 Creatinine 0.50 L Estimated GFR (MDRD) > 60 Glucose 207 H POC Capillary Glucose 207 H Calculated Osmolality 272 Calcium 8.3 L 11/27/16 05:01 WBC RBC Hgb Hct MCV MCH MCHC RDW Plt Count MPV Neut % (Auto) Lymph % (Auto) [place] % (Auto) Eos % (Auto) Baso % (Auto) Absolute Neuts (auto) Absolute Lymphs (auto) Seg Neuts % (Manual) Band Neutrophils % Lymphocytes % (Manual) Monocytes % (Manual) Absolute Neutrophils Absolute Lymphocytes Platelet Estimate RBC Morphology Puncture Site Right radial pH 7.430 pCO2 57.0 H pO2 97.0 HCO3 37.8 H Total CO2 39.5 H Base Excess 11.2 H FiO2 % 2 lpm nc Specimen Drawn By Kaytr Sodium Potassium Chloride Carbon Dioxide Anion Gap BUN Creatinine Estimated GFR (MDRD) Glucose POC Capillary Glucose Calculated Osmolality Calcium Lab/DI/Studies Reviewed: EKG: NSR, NO ST or ST wave changes noted Cxray: 1 view Bilateral pulmonary fibrosis and interstitial infiltrates were noted and haziness on the left side was noted as well essentially unchanged chest x-ray Medications Enoxaparin Sodium (Lovenox) 40 mg SQ DAILY@1800 [facility] Stop: 12/07/16 19:59 Last Admin: 11/24/16 17:30 Dose: 40 mg Furosemide (Lasix) 20 mg IV Q8 [facility] Stop: 12/08/16 21:59 Last Admin: 11/25/16 05:57 Dose: 20 mg Pregabalin (Lyrica) 100 mg PO TID [facility] Stop: 12/07/16 20:59 Last Admin: 11/25/16 05:57 Dose: 100 mg Guaifenesin (Robitussin) 10 ml PO Q6H PRN PRN Reason: Cough - First Option Stop: 12/07/16 16:59 Insulin Human Regular (Humulin R) 0 units SQ ACHS [facility] PRN Reason: Protocol Stop: 12/07/16 16:59 Last Admin: 11/25/16 07:19 Dose: Not Given Lamotrigine (Lamictal) 100 mg PO TID [facility] Stop: 12/07/16 20:59 Last Admin: 11/25/16 05:57 Dose: 100 mg Albuterol/Ipratropium (Duoneb) 3 ml NEB Q2H PRN PRN Reason: Wheezing Stop: 12/07/16 16:59 Albuterol/Ipratropium (Duoneb) 3 ml NEB RTQ6 [facility] Stop: 12/07/16 16:59 Last Admin: 11/25/16 08:46 Dose: 3 ml Azithromycin 500 mg/ Dextrose 250 mls @ 250 mls/hr IV Q24H [facility] Stop: 11/28/16 19:59 Last Admin: 11/24/16 20:11 Dose: 250 mls/hr Ceftriaxone Sodium 1 gm/ (Dextrose) 100 mls @ 200 mls/hr IV Q24H [facility] Stop: 11/30/16 17:59 Last Admin: 11/24/16 17:33 Dose: 200 mls/hr Buprenorphine HCl (Suboxone) 1 tab SL BID [facility] Stop: 12/07/16 20:59 Last Admin: 11/25/16 09:39 Dose: 1 tab Benzonatate (Tessalon) 100 mg PO Q8H PRN PRN Reason: Cough - Alternative Stop: 12/07/16 16:59 Docusate Sodium (Colace) 100 mg PO BID PRN PRN Reason: Stool Softener Stop: 12/07/16 16:59 Lorazepam (Ativan) 1 mg IV Q4H PRN PRN Reason: Anxiety Stop: 12/07/16 16:59 Last Admin: 11/25/16 01:00 Dose: 1 mg Methylprednisolone Sodium Succinate (Solu-Medrol) 40 mg IV Q8H [facility] Stop: 12/08/16 21:59 Last Admin: 11/25/16 05:57 Dose: 40 mg Nicotine (Nicoderm) 21 mg TOP Q24H [facility] Stop: 12/07/16 16:59 Last Admin: 11/24/16 17:30 Dose: 21 mg Primidone (Mysoline) 250 mg PO TID [facility] Stop: 12/07/16 20:59 Last Admin: 11/25/16 05:56 Dose: 250 mg Sodium Chloride (Normal Saline) 1,000 mls @ 50 mls/hr IV Q24H [facility] Stop: 12/08/16 07:59 Last Admin: 11/25/16 09:39 Dose: 50 mls/hr Tamsulosin HCl (Flomax) 0.4 mg PO DAILY [facility] Stop: 12/08/16 08:59 Last Admin: 11/25/16 09:39 Dose: 0.4 mg Zolpidem Tartrate (Ambien) 5 mg PO 2100,2200 PRN PRN Reason: Sleep or Insomnia Stop: 12/07/16 16:59 Last Admin: 11/24/16 23:39 Dose: 5 mg Tizanidine HCl (Zanaflex) 4 mg PO TID [facility] Stop: 12/07/16 20:59 Last Admin: 11/25/16 05:56 Dose: 4 mg Trazodone HCl (Desyrel) 100 mg PO BID [facility] Stop: 12/07/16 20:59 Last Admin: 11/25/16 09:39 Dose: 100 mg - Assessment/Plan (1) Acute bronchopneumonia Acute J18.0 - BRONCHOPNEUMONIA, UNSPECIFIED ORGANISM Comment/Plan: Patient has been improving I would continue the current antibiotics on this patient continue supportive care long-term prognosis on this patient remains poor given the fact that he has significant pulmonary fibrosis I would continue the BiPAP as needed patient may be able to go to regular floor once a bed is available continue DVT and GI prophylaxis and oxygen as required to keep the pulse ox above 90% (2) Acute respiratory failure Acute J96.00 - ACUTE RESPIRATORY FAILURE, UNSP W HYPOXIA OR HYPERCAPNIA hypoxia J96.01 - Acute respiratory failure with hypoxia Comment/Plan: Patient needs to be on BiPAP while he is sleeping at night he would probably need this as an outpatient I would continue the supportive care as mentioned above patient is to regular floor (3) Congestive heart failure Acute I50.9 - HEART FAILURE, UNSPECIFIED systolic unspecified congestive heart failure chronicity I50.20 - Unspecified systolic (congestive) heart failure Comment/Plan: Cardiology consult up appreciated continue other supportive care (4) Pulmonary fibrosis Acute J84.10 - PULMONARY FIBROSIS, UNSPECIFIED Comment/Plan: Patient has significant pulmonary fibrosis on the CT scan and I think that long- term prognosis remains poor on this patient he needs to have close pulmonary follow-up
--- NOTE | 2016-11-27 11:18 | GENMEDPROG ---
Currently: Reports: Cough, Wheezing, CHAVEZ, SOB. Denies: Sputum, Nausea and Vomiting, Abdominal Pain, Chest Pain DVT Prophylaxis: Yes - Physical Examination Vital Signs and I&O: Last Vital Signs Temp 97.9 F 11/26/16 20:00 Pulse 72 11/27/16 09:03 Resp 18 11/27/16 06:00 BP 94/57 L 11/27/16 06:00 Pulse Ox 97 11/27/16 09:18 Oxygen Pulse Oxygen Saturation 97 O2 Device Nasal Cannula Oxygen Flow Rate 3 Fraction of Inspired Oxygen ( 35 FIO2) Intake & Output 11/24/16 11/25/16 11/26/16 11/27/16 23:59 23:59 23:59 23:59 Intake Total 3183 6434 0038 Output Total 4639 7890 3278 1500 Balance 7031 -7259 -1317 -1500 Patient's weight 90.582 kg 90.582 kg 90.582 kg General: Oriented x3, Cooperative, Moderate distress, Weakness, Fatigue. negative: Well appearing (Acutely ill-appearing) HEENT: Normal, PERRLA, EOMI, Anicteric Sclera Neck: Non-tender, Full range of motion, Normal Trachea alignment, Normal inspection. negative: JVD Lymphatics: Normal. negative: Adenopathy, Inguinal Erythema Respiratory: Rales, Rhonchi, Tachypnea. negative: Wheezes (No wheezes today) Cardiovascular: Regular rate and rhythm, No Gallops,Rubs/Murmurs GI: Normal bowel sounds, Soft, No hepatospenomegaly Extremities/Musculoskeletal: Normal pulses. negative: Tenderness, Swelling, Edema Skin: Warm,Dry and Intact, No rashes, No breakdown, No significant lesion Neurological: Normal speech, Strength at 5/5 X4 ext, Normal tone Psych/Mental Status: Appropriate, Normal Affect, Cooperative Lab/DI/Studies Reviewed: Laboratory Tests 11/27/16 11/27/16 11/27/16 04:50 04:50 05:01 WBC 5.7 Hgb 10.4 L Hct 32.0 L Plt Count 194 Seg Neuts % (Manual) 53 Band Neutrophils % 2 Lymphocytes % (Manual) 34 Monocytes % (Manual) 11 H Puncture Site Right radial pH 7.430 pCO2 57.0 H pO2 97.0 HCO3 37.8 H Total CO2 39.5 H Base Excess 11.2 H FiO2 % 2 lpm nc Sodium 137 Potassium 4.2 Chloride 91 L Carbon Dioxide 35 H Anion Gap 15 BUN 19 Creatinine 0.50 L Estimated GFR (MDRD) > 60 Glucose 207 H Calculated Osmolality 272 Calcium 8.3 L - Assessment (1) Acute respiratory failure Acute J96.00 - ACUTE RESPIRATORY FAILURE, UNSP W HYPOXIA OR HYPERCAPNIA Qualifiers: Respiratory failure complication: hypoxia Qualified Code(s): J96.01 - Acute respiratory failure with hypoxia Comment/Plan: Still fatigued appearing but more alert than yesterday. Congestion has improved significantly over last several days though still with coarse breath sounds. Will transfer out of the ICU. Physical therapy to start working with him and increase activity. Continue IV steroids, IV antibiotics and nebulizer treatments. Slowly improving. (2) Acute bronchopneumonia Acute J18.0 - BRONCHOPNEUMONIA, UNSPECIFIED ORGANISM Comment/Plan: IV antibiotics and pulmonary toilet. (3) Congestive heart failure Acute I50.9 - HEART FAILURE, UNSPECIFIED Qualifiers: Congestive heart failure type: systolic Congestive heart failure chronicity : unspecified congestive heart failure chronicity Qualified Code(s): I50.20 - Unspecified systolic (congestive) heart failure Comment/Plan: Patient has right sided systolic failure due to pulmonary hypertension. LVEF is normal. (4) Diabetes mellitus Acute E11.9 - TYPE 2 DIABETES MELLITUS WITHOUT COMPLICATIONS Qualifiers: Diabetes mellitus type: type 2 Diabetes mellitus complication status: without complication Diabetes mellitus complication detail: D Diabetic retinopathy severity: D Proliferative retinopathy type: P Diabetes mellitus macular edema: D Diabetes mellitus nursing home insulin use: without terminal block assembler use Laterality: L Chronic kidney disease stage: C Qualified Code(s): E11.9 - Type 2 diabetes mellitus without complications Comment/Plan: Accu-Cheks and sliding scale insulin (5) Pulmonary fibrosis Acute J84.10 - PULMONARY FIBROSIS, UNSPECIFIED Comment/Plan: Continue IV steroids nebulizer treatments. Patient has pulmonary arterial hypertension. Encourage smoking cessation (6) Resting tremor Acute R25.9 - UNSPECIFIED ABNORMAL INVOLUNTARY MOVEMENTS Comment/Plan: Continue current medications Case Care Discussed with: Patient Education/Counseling Given To: Patient Education/Counseling Given Regarding: Diagnosis, Treatment, Prognosis Critical Care: No Couseling Time (>50% in counseling/coordination): No Code: 76919 (12+)
[2016-11-27] MEDS: CEFTRIAXONE 1 GM in D5W 100 ML IV SCH (17:26)
[2016-11-27] MEDS: ENOXAPARIN 40 MG/0.4 ML PFS SQ SCH (17:26)
[2016-11-27] MEDS: NICOTINE 21 MG PATCH TOP SCH (17:34)
[2016-11-27] MEDS: AZITHROMYCIN 500 MG in D5W 250 ML IV SCH (20:25)
[2016-11-27] MEDS: CHLORHEXIDINE (HIBICLENS) 4 OZ BOTTLE TOP SCH (22:39)
[2016-11-27] MEDS: LORAZEPAM 2 MG/ML VIAL IV PRN (22:42)
[2016-11-28] MEDS: Albuterol/Ipratropium Neb 3 ML NEB NEB SCH ×4 (01:11→20:27)
[2016-11-28] MEDS: LORAZEPAM 2 MG/ML VIAL IV PRN (02:46)
[2016-11-28] MEDS: METHYLPREDNISOLONE 40 MG/1 ML VIAL IV SCH ×3 (05:36→18:00)
[2016-11-28] MEDS: FUROSEMIDE 20 MG/2 ML VIAL IV SCH ×3 (05:36→21:18)
[2016-11-28] MEDS: REGULAR INSULIN 100 UNITS/ML - 3 ML VIAL SQ SCH ×4 (05:38→21:18)
[2016-11-28] MEDS: TIZANIDINE 2 MG TAB PO SCH ×3 (05:39→21:51)
[2016-11-28] MEDS: LAMOTRIGINE 100 MG TAB PO SCH ×3 (05:39→21:17)
[2016-11-28] MEDS: PRIMIDONE 250 MG TAB PO SCH ×3 (05:40→21:17)
[2016-11-28] MEDS: PREGABALIN 100 MG CAP PO SCH ×3 (05:40→21:17)
--- NOTE | 2016-11-28 08:35 | PCM.PULM ---
Chief Complaint: Breathing relatively stable on BIPAP and oxygen. He is a little sleepy this morning Current complaints:SOB,CHAVEZ,cough,wheeze,sputum Current medication list reviewed:yes Notes reviewed:yes, Events from last night noted and discussed with Clinical Staff DVT prophylaxis:yes - Physical Examination Vital Signs and I&O: Last Vital Signs Temp 98.7 F 11/28/16 07:00 Pulse 66 11/27/16 22:00 Resp 12 11/27/16 23:05 BP 100/56 L 11/28/16 07:00 Pulse Ox 97 11/28/16 02:00 Oxygen Pulse Oxygen Saturation 97 O2 Device Nasal Cannula Oxygen Flow Rate 2 Fraction of Inspired Oxygen ( 35 FIO2) Intake & Output 11/25/16 11/26/16 11/27/16 11/28/16 23:59 23:59 23:59 23:59 Intake Total 2587 5688 1721 240 Output Total 3335 2905 3025 Balance -1139 -1317 -1304 240 Patient's weight 90.582 kg 90.582 kg 90.582 kg 90.582 kg General: Alert, Oriented x3, No acute distress, Weakness, Fatigue Respiratory: Diminished, Rales, Rhonchi Cardiovascular: Regular rate, Regular rate and rhythm, Normal S1, No Gallops, Rubs/Murmurs, Normal S2 GI: Normal bowel sounds, Soft, Non tender, No hepatospenomegaly, No masses Extremities/Musculoskeletal: Normal pulses Skin: Warm,Dry and Intact, No rashes, No significant lesion Neurological: Normal speech, Strength at 5/5 X4 ext, Normal tone, Cranial nerves 3-12 NL Psych/Mental Status: Normal Affect, Drowsy Result Diagrams: 11/27/16 04:50 11/27/16 04:50 Labs (last 24 hours): Laboratory Results - last 24 hr 11/28/16 04:56 POC Capillary Glucose 170 H Lab/DI/Studies Reviewed: EKG: NSR, NO ST or ST wave changes noted Medications Enoxaparin Sodium (Lovenox) 40 mg SQ DAILY@1800 [facility] Stop: 12/07/16 19:59 Last Admin: 11/24/16 17:30 Dose: 40 mg Furosemide (Lasix) 20 mg IV Q8 [facility] Stop: 12/08/16 21:59 Last Admin: 11/25/16 05:57 Dose: 20 mg Pregabalin (Lyrica) 100 mg PO TID [facility] Stop: 12/07/16 20:59 Last Admin: 11/25/16 05:57 Dose: 100 mg Guaifenesin (Robitussin) 10 ml PO Q6H PRN PRN Reason: Cough - First Option Stop: 12/07/16 16:59 Insulin Human Regular (Humulin R) 0 units SQ ACHS [facility] PRN Reason: Protocol Stop: 12/07/16 16:59 Last Admin: 11/25/16 07:19 Dose: Not Given Lamotrigine (Lamictal) 100 mg PO TID [facility] Stop: 12/07/16 20:59 Last Admin: 11/25/16 05:57 Dose: 100 mg Albuterol/Ipratropium (Duoneb) 3 ml NEB Q2H PRN PRN Reason: Wheezing Stop: 12/07/16 16:59 Albuterol/Ipratropium (Duoneb) 3 ml NEB RTQ6 [facility] Stop: 12/07/16 16:59 Last Admin: 11/25/16 08:46 Dose: 3 ml Azithromycin 500 mg/ Dextrose 250 mls @ 250 mls/hr IV Q24H [facility] Stop: 11/28/16 19:59 Last Admin: 11/24/16 20:11 Dose: 250 mls/hr Ceftriaxone Sodium 1 gm/ (Dextrose) 100 mls @ 200 mls/hr IV Q24H [facility] Stop: 11/30/16 17:59 Last Admin: 11/24/16 17:33 Dose: 200 mls/hr Benzonatate (Tessalon) 100 mg PO Q8H PRN PRN Reason: Cough - Alternative Stop: 12/07/16 16:59 Docusate Sodium (Colace) 100 mg PO BID PRN PRN Reason: Stool Softener Stop: 12/07/16 16:59 Lorazepam (Ativan) 1 mg IV Q4H PRN PRN Reason: Anxiety Stop: 12/07/16 16:59 Last Admin: 11/25/16 01:00 Dose: 1 mg Methylprednisolone Sodium Succinate (Solu-Medrol) 40 mg IV Q8H [facility] Stop: 12/08/16 21:59 Last Admin: 11/25/16 05:57 Dose: 40 mg Nicotine (Nicoderm) 21 mg TOP Q24H [facility] Stop: 12/07/16 16:59 Last Admin: 11/24/16 17:30 Dose: 21 mg Primidone (Mysoline) 250 mg PO TID [facility] Stop: 12/07/16 20:59 Last Admin: 11/25/16 05:56 Dose: 250 mg Sodium Chloride (Normal Saline) 1,000 mls @ 50 mls/hr IV Q24H [facility] Stop: 12/08/16 07:59 Last Admin: 11/25/16 09:39 Dose: 50 mls/hr Tamsulosin HCl (Flomax) 0.4 mg PO DAILY [facility] Stop: 12/08/16 08:59 Last Admin: 11/25/16 09:39 Dose: 0.4 mg Zolpidem Tartrate (Ambien) 5 mg PO 2100,2200 PRN PRN Reason: Sleep or Insomnia Stop: 12/07/16 16:59 Last Admin: 11/24/16 23:39 Dose: 5 mg Tizanidine HCl (Zanaflex) 4 mg PO TID [facility] Stop: 12/07/16 20:59 Last Admin: 11/25/16 05:56 Dose: 4 mg Trazodone HCl (Desyrel) 100 mg PO BID [facility] Stop: 12/07/16 20:59 Last Admin: 11/25/16 09:39 Dose: 100 mg Buprenorphine HCl (Suboxone) 1 tab SL BID [facility] Stop: 12/07/16 20:59 Last Admin: 11/28/16 09:47 Dose: 1 tab - Assessment/Plan (1) Acute bronchopneumonia Acute J18.0 - BRONCHOPNEUMONIA, UNSPECIFIED ORGANISM Comment/Plan: Patient is on Rocephin and has been doing fairly well I would continue the BiPAP while patient is sleeping continue supportive care with DVT and GI prophylaxis and keep the pulse ox above 90% with supplemental oxygen long-term prognosis in this patient remains poor would follow the patient closely patient may be able to go to regular floor would repeat a blood gas in the morning with a chest x-ray (2) Acute respiratory failure Acute J96.00 - ACUTE RESPIRATORY FAILURE, UNSP W HYPOXIA OR HYPERCAPNIA hypoxia J96.01 - Acute respiratory failure with hypoxia Comment/Plan: I would continue the current supportive care on this patient Patient needs to be on BiPAP while he is sleeping at night he would probably need this as an outpatient (3) Congestive heart failure Acute I50.9 - HEART FAILURE, UNSPECIFIED systolic unspecified congestive heart failure chronicity I50.20 - Unspecified systolic (congestive) heart failure Comment/Plan: Cardiology consult up appreciated continue the current care (4) Pulmonary fibrosis Acute J84.10 - PULMONARY FIBROSIS, UNSPECIFIED Comment/Plan: Patient has significant pulmonary fibrosis on the CT scan and I think that long- term prognosis remains poor on this patient he needs to have close pulmonary follow-up
[2016-11-28] MEDS: TRAZODONE 100 MG TAB PO SCH ×2 (08:50→21:18)
[2016-11-28] MEDS: LEVOTHYROXINE 25 MCG (0.025 MG) TAB PO SCH (08:50)
[2016-11-28] MEDS: TAMSULOSIN HCL 0.4 MG CAP PO SCH (08:50)
[2016-11-28] MEDS: NALOXONE 2 MG SL SCH ×2 (09:47→21:17)
[2016-11-28] MEDS: BUPRENORPHINE SL SCH ×2 (09:47→21:17)
--- NOTE | 2016-11-28 10:39 | GENMEDPROG ---
Chief Complaint: COPD exac, bronchopneumonia, DM-2, CHF, pulmonary fibrosis Currently: Reports: Cough, Wheezing, CAHVEZ, SOB. Denies: Sputum, Nausea and Vomiting, Abdominal Pain, Chest Pain DVT Prophylaxis: Yes - Physical Examination Vital Signs and I&O: Last Vital Signs Temp 98.7 F 11/28/16 07:00 Pulse 66 11/27/16 22:00 Resp 12 11/27/16 23:05 BP 100/56 L 11/28/16 07:00 Pulse Ox 97 11/28/16 08:00 Oxygen Pulse Oxygen Saturation 97 O2 Device Nasal Cannula Oxygen Flow Rate 2 Fraction of Inspired Oxygen ( 35 FIO2) Intake & Output 11/25/16 11/26/16 11/27/16 11/28/16 23:59 23:59 23:59 23:59 Intake Total 2581 3084 1721 240 Output Total 2025 4595 3025 Balance -0973 -1317 -1304 240 Patient's weight 90.582 kg 90.582 kg 90.582 kg 90.582 kg General: Oriented x3, Cooperative, Moderate distress, Weakness, Fatigue. negative: Well appearing (Acutely ill-appearing) HEENT: Normal, PERRLA, EOMI, Anicteric Sclera Neck: Non-tender, Full range of motion, Normal Trachea alignment, Normal inspection. negative: JVD Lymphatics: Normal. negative: Adenopathy, Inguinal Erythema Respiratory: Rales, Rhonchi, Tachypnea. negative: Wheezes (No wheezes today) Cardiovascular: Regular rate and rhythm, No Gallops,Rubs/Murmurs GI: Normal bowel sounds, Soft, No hepatospenomegaly Extremities/Musculoskeletal: Normal pulses, DJD, FROM. negative: Tenderness, Swelling, Edema Skin: Warm,Dry and Intact, No rashes, No breakdown, No significant lesion Neurological: Normal speech, Strength at 5/5 X4 ext, Normal tone, Cranial nerves 3-12 NL Psych/Mental Status: Cooperative, Drowsy - Assessment (1) Acute respiratory failure Acute J96.00 - ACUTE RESPIRATORY FAILURE, UNSP W HYPOXIA OR HYPERCAPNIA Qualifiers: Respiratory failure complication: hypoxia Qualified Code(s): J96.01 - Acute respiratory failure with hypoxia Comment/Plan: Still fatigued appearing but more alert than yesterday. Congestion has improved significantly over last several days though still with coarse breath sounds. Awaiting transfer out of the ICU. Physical therapy working with him to increase activity. Weaning IV steroids, continue IV antibiotics and nebulizer treatments. Slowly improving. (2) Acute bronchopneumonia Acute J18.0 - BRONCHOPNEUMONIA, UNSPECIFIED ORGANISM Comment/Plan: IV antibiotics and pulmonary toilet. (3) Congestive heart failure Acute I50.9 - HEART FAILURE, UNSPECIFIED Qualifiers: Congestive heart failure type: systolic Congestive heart failure chronicity : unspecified congestive heart failure chronicity Qualified Code(s): I50.20 - Unspecified systolic (congestive) heart failure Comment/Plan: Patient has right sided systolic failure due to pulmonary hypertension. LVEF is normal. (4) Diabetes mellitus Acute E11.9 - TYPE 2 DIABETES MELLITUS WITHOUT COMPLICATIONS Qualifiers: Diabetes mellitus type: type 2 Diabetes mellitus complication status: without complication Diabetes mellitus complication detail: D Diabetic retinopathy severity: D Proliferative retinopathy type: P Diabetes mellitus macular edema: D Diabetes mellitus intermediate designer insulin use: without alf use Laterality: L Chronic kidney disease stage: C Qualified Code(s): E11.9 - Type 2 diabetes mellitus without complications Comment/Plan: Accu-Cheks and sliding scale insulin (5) Pulmonary fibrosis Acute J84.10 - PULMONARY FIBROSIS, UNSPECIFIED Comment/Plan: Continue IV steroids, nebulizer treatments. Patient has pulmonary arterial hypertension. Encourage smoking cessation (6) Resting tremor Acute R25.9 - UNSPECIFIED ABNORMAL INVOLUNTARY MOVEMENTS Comment/Plan: Continue current medications - Plan Anticipate discharge 2-3 days. Case Care Discussed with: Patient, Nursing Staff, Resource Management Education/Counseling Given To: Patient Education/Counseling Given Regarding: Diagnosis, Treatment, Prognosis Total Time: 25 min
[2016-11-28] MEDS: ENOXAPARIN 40 MG/0.4 ML PFS SQ SCH (17:58)
[2016-11-28] MEDS: CEFTRIAXONE 1 GM in D5W 100 ML IV SCH (17:58)
[2016-11-28] MEDS: NICOTINE 21 MG PATCH TOP SCH (20:39)
[2016-11-28] MEDS: CHLORHEXIDINE (HIBICLENS) 4 OZ BOTTLE TOP SCH (20:43)
[2016-11-28] MEDS: ZOLPIDEM TARTRATE 5 MG TAB PO PRN ×2 (21:38→22:58)
[2016-11-29] MEDS: LORAZEPAM 2 MG/ML VIAL IV PRN (01:11)
[2016-11-29] MEDS: Albuterol/Ipratropium Neb 3 ML NEB NEB SCH ×2 (02:10→08:43)
[2016-11-29] MEDS: METHYLPREDNISOLONE 40 MG/1 ML VIAL IV SCH (05:49)
[2016-11-29] MEDS: FUROSEMIDE 20 MG/2 ML VIAL IV SCH (05:50)
[2016-11-29] MEDS: PREGABALIN 100 MG CAP PO SCH (05:52)
[2016-11-29] MEDS: TIZANIDINE 2 MG TAB PO SCH (05:52)
[2016-11-29] MEDS: LAMOTRIGINE 100 MG TAB PO SCH (05:52)
[2016-11-29] MEDS: PRIMIDONE 250 MG TAB PO SCH (05:52)
[2016-11-29] MEDS: REGULAR INSULIN 100 UNITS/ML - 3 ML VIAL SQ SCH ×2 (06:19→10:55)
[2016-11-29 06:53] VITALS: PULSE 90; BMI 26.8
[2016-11-29] MEDS: TAMSULOSIN HCL 0.4 MG CAP PO SCH (07:43)
[2016-11-29] MEDS: LEVOTHYROXINE 25 MCG (0.025 MG) TAB PO SCH (07:43)
[2016-11-29] MEDS: TRAZODONE 100 MG TAB PO SCH (07:43)
[2016-11-29] MEDS ORDERED: NALOXONE 2 MG SL ONE (07:45)
[2016-11-29] MEDS ORDERED: BUPRENORPHINE SL ONE (07:45)
[2016-11-29] MEDS: BUPRENORPHINE SL SCH (07:54)
[2016-11-29] MEDS: NALOXONE 2 MG SL SCH (07:54)
--- NOTE | 2016-11-29 09:59 | PCM.PULM ---
Chief Complaint: Uneventful overnight Patient alert and interactive. Breathing is improving. Patient is ambulating in room on oxygen Current medication list reviewed:yes Notes reviewed:yes, Events from last night noted and discussed with Clinical Staff GI/DVT prophylaxis:yes - Physical Examination Vital Signs and I&O: Last Vital Signs Temp 97.8 F 11/28/16 22:00 Pulse 90 11/29/16 06:00 Resp 18 11/29/16 06:00 BP 121/71 11/29/16 06:00 Pulse Ox 98 11/29/16 08:00 Oxygen Pulse Oxygen Saturation 98 O2 Device Nasal Cannula Oxygen Flow Rate 2 Fraction of Inspired Oxygen ( 35 FIO2) Intake & Output 11/26/16 11/27/16 11/28/16 11/29/16 23:59 23:59 23:59 23:59 Intake Total 195 1721 2042 Output Total 3275 3025 Balance -1317 -1304 3 Patient's weight 90.582 kg 90.582 kg 90.582 kg 89.721 kg General: Alert, Oriented x3, No acute distress, Fatigue (improved) Respiratory: Diminished, Rhonchi Cardiovascular: Regular rate, Regular rate and rhythm, Normal S1, No Gallops, Rubs/Murmurs, Normal S2 GI: Normal bowel sounds, Soft, Non tender, No masses Extremities/Musculoskeletal: Normal pulses Skin: Warm,Dry and Intact, No rashes, No breakdown Neurological: Normal Steady Gait, Normal speech, Strength at 5/5 X4 ext, Cranial nerves 3-12 NL Psych/Mental Status: Appropriate Result Diagrams: 11/27/16 04:50 11/27/16 04:50 Labs (last 24 hours): Laboratory Results - last 24 hr 11/29/16 06:19 POC Capillary Glucose 181 H Lab/DI/Studies Reviewed: EKG: NSR, NO ST or ST wave changes noted Medications: Enoxaparin Sodium (Lovenox) 40 mg SQ DAILY@1800 [facility] Stop: 12/07/16 19:59 Last Admin: 11/24/16 17:30 Dose: 40 mg Pregabalin (Lyrica) [address] [facility] Stop: 12/07/16 20:59 Last Admin: 11/25/16 05:57 Dose: 100 mg Guaifenesin (Robitussin) 10 ml PO Q6H PRN PRN Reason: Cough - First Option Stop: 12/07/16 16:59 Insulin Human Regular (Humulin R) 0 units SQ ACHS CLARITZA PRN Reason: Protocol Stop: 12/07/16 16:59 Last Admin: 11/25/16 07:19 Dose: Not Given Lamotrigine (Lamictal) [address] [facility] Stop: 12/07/16 20:59 Last Admin: 11/25/16 05:57 Dose: 100 mg Albuterol/Ipratropium (Duoneb) 3 ml NEB Q2H PRN PRN Reason: Wheezing Stop: 12/07/16 16:59 Albuterol/Ipratropium (Duoneb) [address] [facility] Stop: 12/07/16 16:59 Last Admin: 11/25/16 08:46 Dose: 3 ml Ceftriaxone Sodium 1 gm/ (Dextrose) 100 mls @ 200 mls/hr IV Q24H [facility] Stop: 11/30/16 17:59 Last Admin: 11/24/16 17:33 Dose: 200 mls/hr Buprenorphine HCl (Suboxone) [address] [facility] Stop: 12/07/16 20:59 Last Admin: 11/25/16 09:39 Dose: 1 tab Benzonatate (Tessalon) 100 mg PO Q8H PRN PRN Reason: Cough - Alternative Stop: 12/07/16 16:59 Docusate Sodium (Colace) 100 mg PO BID PRN PRN Reason: Stool Softener Stop: 12/07/16 16:59 Lorazepam (Ativan) 1 mg IV Q4H PRN PRN Reason: Anxiety Stop: 12/07/16 16:59 Last Admin: 11/25/16 01:00 Dose: 1 mg Nicotine (Nicoderm) [address] [facility] Stop: 12/07/16 16:59 Last Admin: 11/24/16 17:30 Dose: 21 mg Primidone (Mysoline) [address] [facility] Stop: 12/07/16 20:59 Last Admin: 11/25/16 05:56 Dose: 250 mg Tamsulosin HCl (Flomax) 0.[address] [facility] Stop: 12/08/16 08:59 Last Admin: 11/25/16 09:39 Dose: 0.4 mg Zolpidem Tartrate (Ambien) 5 mg PO 2100,2200 PRN PRN Reason: Sleep or Insomnia Stop: 12/07/16 16:59 Last Admin: 11/24/16 23:39 Dose: 5 mg Tizanidine HCl (Zanaflex) [address] [facility] Stop: 12/07/16 20:59 Last Admin: 11/25/16 05:56 Dose: 4 mg Trazodone HCl (Desyrel) [address] [facility] Stop: 12/07/16 20:59 Last Admin: 11/25/16 09:39 Dose: 100 mg Buprenorphine HCl (Suboxone) [address] [facility] Stop: 12/07/16 20:59 Last Admin: 11/28/16 09:47 Dose: 1 tab Methylprednisolone Sodium Succinate (Solu-Medrol) [address] [facility] Stop: 12/12/16 17:59 Last Admin: 11/29/16 05:49 Dose: 20 mg Furosemide (Lasix) [address] [facility] Stop: 12/08/16 21:59 Last Admin: 11/29/16 05:50 Dose: 20 mg - Assessment/Plan (1) Acute bronchopneumonia Acute J18.0 - BRONCHOPNEUMONIA, UNSPECIFIED ORGANISM Comment/Plan: Patient is improved significantly and will be able to go home I suggest that patient stay on BiPAP while he is sleeping at home because he has significant CO2 retention and may even have sleep apnea would need to have further studies done as an outpatient. Continue supportive care DVT and GI prophylaxis and oxygen vent patient is ambulating continue supportive care would follow the patient as an outpatient within a week or so after his discharge (2) Acute respiratory failure Acute J96.00 - ACUTE RESPIRATORY FAILURE, UNSP W HYPOXIA OR HYPERCAPNIA hypoxia J96.01 - Acute respiratory failure with hypoxia Comment/Plan: I would continue the current supportive care on this patient Patient needs to be on BiPAP while he is sleeping at night he would probably need this as an outpatient (3) Congestive heart failure Acute I50.9 - HEART FAILURE, UNSPECIFIED systolic unspecified congestive heart failure chronicity I50.20 - Unspecified systolic (congestive) heart failure Comment/Plan: Cardiology consult up appreciated continue the current care (4) Pulmonary fibrosis Acute J84.10 - PULMONARY FIBROSIS, UNSPECIFIED Comment/Plan: Patient has significant pulmonary fibrosis on the CT scan and I think that long- term prognosis remains poor on this patient he needs to have close pulmonary follow-up
--- NOTE | 2016-11-29 10:50 | PCM.DCS92 ---
- Final/Secondary Discharge Diagnosis (1) Acute respiratory failure Acute J96.00 - ACUTE RESPIRATORY FAILURE, UNSP W HYPOXIA OR HYPERCAPNIA Present on Admission: Yes hypoxia J96.01 - Acute respiratory failure with hypoxia Comment: Patient is feeling better, ambulating on unit. Congestion has improved significantly over last several days though still with coarse breath sounds. Physical therapy working with him to increase activity. Weaning steroids, completes antibiotics today and will continue nebulizer treatments at home. Patient wants to do outpatient rehabilitation now. (2) Acute bronchopneumonia Acute J18.0 - BRONCHOPNEUMONIA, UNSPECIFIED ORGANISM Present on Admission: Yes Comment: Has completed IV antibiotics and doing well with pulmonary toilet. (3) Congestive heart failure Acute I50.9 - HEART FAILURE, UNSPECIFIED Present on Admission: Yes systolic unspecified congestive heart failure chronicity I50.20 - Unspecified systolic (congestive) heart failure Comment: Patient has right sided systolic failure due to pulmonary hypertension. LVEF is normal. (4) Diabetes mellitus Acute E11.9 - TYPE 2 DIABETES MELLITUS WITHOUT COMPLICATIONS Present on Admission: Yes type 2 without complication D D P D without long term care phlebotomist use L C E11.9 - Type 2 diabetes mellitus without complications Comment: Resume Janumet. continue diabetic diet, Accu-Cheks and sliding scale insulin (5) Pulmonary fibrosis Acute J84.10 - PULMONARY FIBROSIS, UNSPECIFIED Present on Admission: Yes Comment: Continue steroid taper, nebulizer treatments. Patient has pulmonary arterial hypertension. Encourage smoking cessation (6) Resting tremor Acute R25.9 - UNSPECIFIED ABNORMAL INVOLUNTARY MOVEMENTS Present on Admission: Yes Comment: Continue current medications Discharge Disposition: Home Discharge Condition: Improved Cognitive Discharge Status: Unimpaired Fuctional Discharge Status: Independent, Deconditioning, Dyspnea with ambulation Physician Follow up/Referrals: Tejal Smith MD [NonStaff] - One Week Home Medications / New Prescriptions: New Albuterol/Ipratropium Neb [Duoneb] 3 ml NEB RTQ6 #120 nebu Nicotine [Nicoderm] 21 mg TOP Q24H #30 pat Continue Lamotrigine [Lamictal] 100 mg PO TID Guaifenesin-Dextromethorphan [Mucinex Dm] 1 tab PO BID Tamsulosin HCl [Flomax] 0.4 mg PO DAILY Primidone [Mysoline] 250 mg PO TID Naproxen 500 mg PO BID Levothyroxine [Synthroid, Levoxyl] 25 mcg PO DAILY Buprenorphine HCl/Naloxone HCl [Suboxone SL Film (8 mg/2 mg)] 1 film SL BID Sitagliptin Phos/Metformin HCl [Janumet 50-1,000 mg Tablet] 1 tab PO BID Trazodone HCl 100 mg PO BID Tizanidine HCl 4 mg PO TID Pregabalin [Lyrica] 100 mg PO TID Chlorpheniramine/Phenylephrine [Eql Sinus-Allergy PE Tablet] 1 tab PO DIR O2 Device: Nasal Cannula Oxygen Flow Rate: 2 Oxygen to be used after Discharge: Continuous Diet at Discharge: Heart Healthy, Diabetic, 2200 Calorie Activity: As Tolerated, No Heavy Lifting Call Office For: Worsening Symptoms, Fever over 101 F, Pain Uncontrolled By Meds Discontinue use of:: Alcohol, All Illegal Substances, All Types of Tobacco - DC Summary Notes Home Health Need / Long-Term Services:: Due to the presence of Pulmonary Changes and/or risk of deterioration a skilled Assessment and observation of pulmonary status is required for this patient. This assessment could include but not limited to teaching, training of disease process and symptom management (diet, infection control, safety) and recognizing changes/decline in status. If appropriate to include education on oxygen use - safety, storage, reordering and need for a fire plan. Pulse Oximetry PRN for S/S respiratory distress. Patient requires a skilled evaluation for rehabilitation services. To include gait training, transfer training and stair training. Instruction on use of assistive devices for ambulation on all surfaces. Instruct and upgrade home exercise program and therapeutic exercises to increase strength and endurance.Passive and active ROM exercises for strengthening. Recommend home adaptation to facilitate safety. Safety, pain and medication management. Hospital Course Note:: Discharge summary on patient named VIJAYA BARR admitted to [facility] on 11/23/16 by Jamil Brown MD. Date of discharge is []. Mr. Barr is a 56-year-old white male with history of end-stage COPD and pulmonary fibrosis on chronic oxygen at home who presents to the emergency room with 5 days of increasing shortness of breath, congestion and general weakness. He has been using his breathing treatments regularly and has been increasing his oxygen at home. Despite this he has had very little relief. Family states that he could barely walk more than 10 feet without giving out. This prompted them to encourage him to come to the emergency room. In the ER he was severely short of breath. He was given nebulizer treatments, Lasix, IV steroids. He apparently tried to get out of bed to walk and nearly collapsed, becoming severely short of breath. He has had to be placed on BiPAP. He is moderately acidotic and hypoxic. He has severe diffuse rales and rhonchi on exam. He will be admitted to the intensive care unit for further evaluation and management. He was admitted, had blood and urine cultures done and was placed on BiPAP. He also received IV steroids and seven days of IV antibiotics with Rocephin and Zithromax. The patient remained very frail with significant respiratory distress for several days. He has gradually improved. As his respiratory status improved, he was started on physical therapy and increasing mobility. His steroids have been weaned. His diabetes has been controlled with diet and insulin. Currently he is greatly improved. He has been using BiPAP every night, and could benefit from a CPAP machine at night. We will set him up with a referral to Dr. Luong for a sleep study to see if he qualifies for CPAP at home. He is to follow up with Dr. Smith in [place] in 1-2 weeks. Code: 11547 (>30min.) - Physical Exam Vital Signs: Last Vital Signs Temp 97.8 F 11/28/16 22:00 Pulse 90 11/29/16 06:00 Resp 18 11/29/16 06:00 BP 121/71 11/29/16 06:00 Pulse Ox 98 11/29/16 08:00 Oxygen Pulse Oxygen Saturation 98 O2 Device Nasal Cannula Oxygen Flow Rate 2 Fraction of Inspired Oxygen ( 35 FIO2) Constitutional: No apparent distress, Alert. negative: Well appearing (Acutely ill-appearing) Oriented to: Time, Person, Place - HEENT Head: Normal Eye: Normal. negative: Conjunctival Injection, Scleral Icterus Oropharynx: Normal. negative: Drooling Tympanic Membrane: Normal ENT EAC: Normal Nose: No Symptoms Reported - Respiratory/Cardiovascular Respiratory: Normal - CTA, Diminished. negative: Wheezes (No wheezes today) Cardiovascular: Normal - GI Auscultation: Normal Palpation: Normal Tenderness: Non tender Burns's Sign: Negative Rectal Exam: Deferred - Musculoskeletal Back: Normal Extremities: Normal - Integumentary Skin: Warm, Dry Lymphatics: Normal. negative: Adenopathy, Inguinal Erythema - Neurologic Memory Impaired: Normal (Appears normal. Difficult to interact due to respiratory distress and BiPAP use) Motor Function: Normal Cranial Nerve: Normal Cerebellar: Normal Mood Description: Normal Thought: Coherent Perception: Normal
[2016-11-29 12:09] VITALS: BP 120/85; TEMP 97.9
== END 2016-11-29 13:24 | disposition home or self-care (01) | DRG 189 ==
LOC: ED 13:33 → ICU 18:05
PROVIDERS: ADMIT Hospitalist; ATTEND Family Medicine
PROC: 039B3ZZ Drainage of Right Radial Artery, Percutaneous Approach (ICD-10-PCS; principal; 2016-11-23)
PROC: 5A09357 Assistance with Respiratory Ventilation, Less than 24 Consecutive Hours, Continuous Positive Airway Pressure (ICD-10-PCS; 2016-11-23)
DX: J96.01 Acute respiratory failure with hypoxia (principal); I50.21 Acute systolic (congestive) heart failure; J18.0 Bronchopneumonia, unspecified organism; J84.10 Pulmonary fibrosis, unspecified; Z99.81 Dependence on supplemental oxygen; J44.0 Chronic obstructive pulmonary disease with (acute) lower respiratory infection; J44.1 Chronic obstructive pulmonary disease with (acute) exacerbation; E11.9 Type 2 diabetes mellitus without complications; R25.9 Unspecified abnormal involuntary movements; I10 Essential (primary) hypertension; F32.9 Major depressive disorder, single episode, unspecified; Z79.899 Other long term (current) drug therapy; F17.210 Nicotine dependence, cigarettes, uncomplicated; Z23 Encounter for immunization
CPT/HCPCS: 36415; 36600; 51701; 71010; 71250; 80048; 80053; 81001; 82803; 82962; 83605; 83880; 84439; 84443; 84481; 84484; 85007; 85027; 87040; 87641; 90471; 90656; 90732; 93005; 93306; 94640; 94660; 96372; 96374; 96375; 97162; 99284; 99406; G0237; J0456; J0696; J1650; J1940; J2060; J2920; J2930; J3490; J7040; J7060; J7070; J7620